=== PATIENT | female | born 1940 | race Caucasian/White ===

== ENCOUNTER 2018-03-08 08:27 | Day surgery (SDC) | payer MEDICARE ==
[~2018-03-08 08:27] MED LIST: Acetaminophen TAB* 325 MG PO PRN; Buffered Lidocaine 0.9% SYRIN* 5 ML/SYR SYRINGE INTRADERM ONE
[2018-03-08] MEDS ORDERED: Midazolam* 1 MG/ML 2 ML VIAL (2 MG) ONE (09:14)
[2018-03-08 10:16] VITALS: BP 158/82
--- NOTE | 2018-03-08 12:53 | OP ---
DATE OF OPERATION: 03/08/2018 - [facility] DATE OF : 1940. SURGEON: Elan George MD ANESTHESIA: Monitored anesthesia care. PREOPERATIVE DIAGNOSIS: Cataract, right eye. POSTOPERATIVE DIAGNOSIS: Cataract, right eye. OPERATIVE PROCEDURE: Extracapsular cataract extraction of the right eye with intraocular lens implant. IMPLANT: SN60WF 21.5 Diopter lens to the right eye. COMPLICATIONS: None. DESCRIPTION OF PROCEDURE: The patient was given phenylephrine 2.5 % and cyclopentolate 1% eye drops to the operative eye in the preoperative area. The patient was taken to the operating room where a time-out was taken to identify the correct patient, site, and side of surgery. The patient's right eye was prepped and draped in the usual sterile fashion with 5% Betadine. A second time- out was taken to verify the correct patient, side, and site of surgery, as well as the correct lens implant. A lid speculum was placed to the right eye. A 1mm paracentesis blade was used to make a clear corneal incision. Preservative-free 1% lidocaine was injected into the anterior chamber. DisCoVisc was then injected into the anterior chamber. A 2.75 mm keratome blade was used to make a triplanar incision. A cystotome initiated a capsulorrhexis, which was completed with Utrata forceps in a continuous and curvilinear manner. Hydrodissection of the lens was performed with BSS on a cannula. The lens could be spun in a capsular bag. The phacoemulsification handpiece was used with a divide-and- conquer technique to remove the nucleus. The I/A handpiece then removed the residual cortical lens material. DisCoVisc was injected to inflate the capsular bag. The planned SN60WF 21.5 Diopter lens was injected into the capsular bag. The residual DisCoVisc was removed from the eye with the I/A handpiece. The corneal incisions were hydrated and no leaks occurred at physiologic pressure around 20 mmHg per palpation. The lid speculum was removed and drapes were removed. Maxitrol ointment was placed to the surface of the operative eye. An adhesive patch and shield was then placed on the operative eye. The patient was taken to the post-operative area in stable condition. [id number]/[facility] #: [id number] [facility]
[2018-03-08] MEDS ORDERED: Neomycin/Polymy/Dex OPHTH.OIN* 3.5 GM ONE (13:58)
[2018-03-08] MEDS ORDERED: acetaZOLAMIDE TAB* 250 MG ONE (13:58)
[2018-03-08] MEDS ORDERED: Tetracaine 0.5% OPTH.SOL 4 ML* 1 DROP BTL ONE (13:58)
[2018-03-08] MEDS ORDERED: Lidocaine 1%* 5 ML VIAL ONE (13:58)
[2018-03-08] MEDS ORDERED: Ketorolac 0.5% OPHTH (NF) 0.5 % 5 ML BTL ONE (13:58)
[2018-03-08] MEDS ORDERED: Cyclopentolate 1% OPTH.SOL* 2 ML BTL ONE (13:58)
[2018-03-08] MEDS ORDERED: Tropicamide 1% OPTH.SOL* BTL ONE (13:58)
[2018-03-08] MEDS ORDERED: Phenylephrine 2.5% OPTH.SOL* 2 ML BTL ONE (13:58)
[2018-03-08] MEDS ORDERED: Povidone Iodine 5% OPTH* 30 ML BTL ONE (13:58)
== END 2018-03-08 10:11 | disposition home or self-care (01) ==
LOC: OREAST 08:27
PROVIDERS: ATTEND Student in an Organized Health Care Education/Training Program
DX: H25.811 Combined forms of age-related cataract, right eye (principal); H35.3132 Nonexudative age-related macular degeneration, bilateral, intermediate dry stage; H40.023 Open angle with borderline findings, high risk, bilateral; I10 Essential (primary) hypertension; M06.9 Rheumatoid arthritis, unspecified
CPT/HCPCS: A9270-GY; J2250; V2632

== ENCOUNTER 2018-03-15 07:38 | Day surgery (SDC) | payer MEDICARE ==
[2018-03-15] MEDS ORDERED: fentaNYL* 50 MCG/ML 2 ML VIAL (100 MCG VIAL) ONE (08:30)
[2018-03-15] MEDS ORDERED: Midazolam* 1 MG/ML 2 ML VIAL (2 MG) ONE (08:30)
[2018-03-15 09:26] VITALS: BP 137/71
[2018-03-15] MEDS ORDERED: Tetracaine 0.5% OPTH.SOL 4 ML* 1 DROP BTL ONE (10:59)
[2018-03-15] MEDS ORDERED: Tropicamide 1% OPTH.SOL* BTL ONE (10:59)
[2018-03-15] MEDS ORDERED: Cyclopentolate 1% OPTH.SOL* 2 ML BTL ONE (10:59)
[2018-03-15] MEDS ORDERED: Lidocaine 1%* 5 ML VIAL ONE (10:59)
[2018-03-15] MEDS ORDERED: Povidone Iodine 5% OPTH* 30 ML BTL ONE (10:59)
[2018-03-15] MEDS ORDERED: Ketorolac 0.5% OPHTH (NF) 0.5 % 5 ML BTL ONE (10:59)
[2018-03-15] MEDS ORDERED: acetaZOLAMIDE TAB* 250 MG ONE (10:59)
[2018-03-15] MEDS ORDERED: Neomycin/Polymy/Dex OPHTH.OIN* 3.5 GM ONE (10:59)
[2018-03-15] MEDS ORDERED: Phenylephrine 2.5% OPTH.SOL* 2 ML BTL ONE (10:59)
--- NOTE | 2018-03-15 16:14 | OP ---
DATE OF OPERATION: 03/15/18 - [facility] DATE OF : [birth year] SURGEON: Elan George MD ANESTHESIA: Monitored anesthesia care. PREOPERATIVE DIAGNOSIS: Cataract, left eye. POSTOPERATIVE DIAGNOSIS: Cataract, left eye. OPERATIVE PROCEDURE: Extracapsular cataract extraction of the left eye with intraocular lens implant. IMPLANT: SN60WF 21.5 diopter lens to the left eye. COMPLICATIONS: None. DESCRIPTION OF PROCEDURE: The patient was given phenylephrine 2.5 % and cyclopentolate 1% eye drops to the operative eye in the preoperative area. The patient was taken to the operating room where a time-out was taken to identify the correct patient, site, and side of surgery. The patient's left eye was prepped and draped in the usual sterile fashion with 5% Betadine. A second time- out was taken to verify the correct patient, side, and site of surgery, as well as the correct lens implant. A lid speculum was placed to the left eye. A 1mm paracentesis blade was used to make a clear corneal incision. Preservative-free 1% lidocaine was injected into the anterior chamber. DisCoVisc was then injected into the anterior chamber. A 2.75 mm keratome blade was used to make a triplanar incision. A cystotome initiated a capsulorrhexis, which was completed with Utrata forceps in a continuous and curvilinear manner. Hydrodissection of the lens was performed with BSS on a cannula. The lens could be spun in a capsular bag. The phacoemulsification handpiece was used with a divide-and- conquer technique to remove the nucleus. The I/A handpiece then removed the residual cortical lens material. DisCoVisc was injected to inflate the capsular bag. The planned SN60WF 21.5 Diopter lens was injected into the capsular bag. The residual DisCoVisc was removed from the eye with the I/A handpiece. The corneal incisions were hydrated and no leaks occurred at physiologic pressure around 20 mmHg per palpation. The lid speculum was removed and drapes were removed. Maxitrol ointment was placed to the surface of the operative eye. An adhesive patch and shield was then placed on the operative eye. The patient was taken to the postoperative area in stable condition. [id number]/[facility] #: [id number] [facility]
== END 2018-03-15 09:31 | disposition home or self-care (01) ==
LOC: OREAST 07:38
PROVIDERS: ATTEND Student in an Organized Health Care Education/Training Program
DX: H25.812 Combined forms of age-related cataract, left eye (principal); H35.3132 Nonexudative age-related macular degeneration, bilateral, intermediate dry stage; H40.023 Open angle with borderline findings, high risk, bilateral; I10 Essential (primary) hypertension; E78.5 Hyperlipidemia, unspecified; M06.9 Rheumatoid arthritis, unspecified
CPT/HCPCS: A9270-GY; J2250; J3010; V2632

== ENCOUNTER 2019-02-23 18:46 | Inpatient (IN) | payer MEDICARE ==
[2019-02-23] MEDS ORDERED: NS 0.9% 1000 ML** 1,000 ML IV ONE (18:55)
[2019-02-23] MEDS ORDERED: Iodixanol* (CONTRAST) 320 MG/ML 100 ML SDV IV ONE (19:06)
--- NOTE | 2019-02-23 19:06 | ED ---
Neurological HPI - HPI Summary HPI Summary: Pt is a 78 y/o F presenting to the ED with a chief complaint of L-sided numbness /tingling. HAMMAD CANAS CALLED at 185. Last known well: 1344. Per the daughter and patient, she felt well this morning, took a nap in the afternoon, woke up, went for a short walk, then suddenly began experiencing L-sided tingling and numbness. Per triage, she also has some L arm drift, gait disturbance, nausea, vomiting, and diarrhea. Patient is a history of hypertension and took her blood pressure medications this morning. Pt to CT at 1854. at 1903, concern for IPH on head CT, proceed with CTA. - History of Current Complaint Chief Complaint: EDNeurologicalDeficit Stated Complaint: LT SIDED NUMBNESS /WEAKNESS PER DAUGHTER Time Seen by Provider: 02/23/19 18:52 Last Known Well Date: 02/23/19 13:45 Hx Obtained From: Patient Onset/Duration: Sudden Onset, Started hours ago, Still Present Timing: Sudden Onset Onset Severity: Moderate Current Severity: Moderate Pain Intensity: 0 Pain Scale Used: 0-10 Numeric Character: Weak, Numbness/Tingling Aggravating: Unknown Alleviating: Unknown Associated Signs and Symptoms: Positive: Unsteady Gait, Weakness, Numbness, Nausea/Vomiting, Diarrhea - Allergy/Home Medications Allergies/Adverse Reactions: Allergies Allergy/AdvReac Type Severity Reaction Status Date / Time No Known Allergies Allergy Verified 03/15/18 07:51 Home Medications: Home Medications Hydrochlorothiazide TAB* [Hydrodiuril TAB*] 12.5 mg PO DAILY 02/23/19 [History Confirmed 02/23/19] PMH/Surg Hx/FS Hx/Imm Hx Previously Healthy: Yes Cardiovascular History: Reports: Hx Hypercholesterolemia, Hx Hypertension - ON MEDICATION, Other Cardiovascular Problems/Disorders - elevated cholesterol-on med Respiratory History: Denies: Other Respiratory Problems/Disorders GI History: Denies: Other GI Disorders History: Denies: Other Problems/Disorders Musculoskeletal History: Reports: Hx Arthritis - rheumatoid arthritis, Hx Scoliosis, Other Musculoskeletal History - Scoliosis, Right lower arm fx repair 1979 Denies: Hx Osteoporosis Sensory History: Reports: Hx Cataracts - Bilateral, Hx Contacts or Glasses - Glasses Denies: Hx Hearing Aid Opthamlomology History: Reports: Hx Cataracts - Bilateral, Hx Contacts or Glasses - Glasses Neurological History: Denies: Hx Headaches, Other Neuro Impairments/Disorders - Cancer History Hx Chemotherapy: No Hx Radiation Therapy: No - Surgical History Surgery Procedure, Year, and Place: Colonoscopies. Fractured right lower arm repair . Partial Hysterectomy age 28 Hx Anesthesia Reactions: No Infectious Disease History: No Infectious Disease History: Denies: Traveled Outside the [place] in Last 30 Days - Family History Known Family History: Negative: Diabetes - Social History Alcohol Use: Occasionally Alcohol Amount: wine occasionally Hx Substance Use: No Substance Use Type: Reports: None Hx Tobacco Use: No Smoking Status (MU): Never Smoked Tobacco Review of Systems Positive: Vomiting, Diarrhea, Nausea Positive: Other - gait disturbance, L arm drift Positive: Weakness, Paresthesia, Numbness All Other Systems Reviewed And Are Negative: Yes Physical Exam - Summary Physical Exam Summary: Constitutional: Well-developed, Well-nourished, Alert. (-) Distressed Skin: Warm, Dry HENT: Normocephalic; Atraumatic Eyes: Conjunctiva normal Neck: Musculoskeletal ROM normal neck. (-) JVD, (-) Nuchal rigidity Cardio: Rhythm regular, rate normal, Heart sounds normal; Intact distal pulses; Radial pulses are 2+ and symmetric. (-) Murmur Pulmonary/Chest wall: Effort normal. (-) Respiratory distress, (-) Wheezes, (-) Rales Abd: Soft. (-) Tenderness, (-) Distension, (-) Guarding, (-) Rebound Musculoskeletal: (-) Edema Lymph: (-) Cervical adenopathy Neuro: Alert, PERRL, Oriented x3, Cranial nerves II-XII are grossly intact. L upper extremity drift, decreased sensation in left arm and left leg (-) Dysmetria, (-) Nystagmus, gait deferred Psych: Mood and affect Normal Triage Information Reviewed: Yes Vital Signs On Initial Exam: Initial Vitals Temp Pulse Resp BP Pulse Ox 99.1 F 96 18 177/109 96 02/23/19 18:47 02/23/19 18:47 02/23/19 18:47 02/23/19 18:47 02/23/19 18:47 Vital Signs Reviewed: Yes Procedures - Sedation Patient Received Moderate/Deep Sedation with Procedure: No Diagnostics - Vital Signs Vital Signs Temp Pulse Resp BP Pulse Ox 11/06/19 18:47 99.1 F 96 18 177/109 96 - Laboratory Result Diagrams: 02/23/19 19:18 02/23/19 19:18 Lab Statement: Any lab studies that have been ordered have been reviewed, and results considered in the medical decision making process. - Radiology CXR Radiology Interpretation Completed By: Radiologist Summary of Radiographic Findings: No acute process. Pending official radiology report. - CT CTA Head/Neck CT Interpretation Completed By: Radiologist Summary of CT Findings: Head CTA. Suspected 2 mm aneurysm at the inferior wall of the left supraclinoid ICA. Neck CTA. No acute vascular abnormality identified in the neck. ED physician has reviewed this report. Brain CT CT Interpretation Completed By: Radiologist Summary of CT Findings: 1. Right ganglial capsular hemorrhage measuring 13 mm, with no mass effect or midline shift. 2. Age-related involutional changes, with findings of chronic microvascular ischemic disease. ED physician has reviewed this report. - EKG 2026 Cardiac Rate: Tachycardia - 97bpm EKG Rhythm: Sinus Tachycardia ST Segment: Normal Ectopy: None Summary of EKG Findings: An EKG at 2026 reveals NSR at 97bpm with PACs, nml axis , nml intervals. No STEMI. No acute changes. ED physician has reviewed and interpreted this EKG. NIH Scale - NIH Scale Level of Consciousness: Alert/Keenly Responsive Ask Patient the Month and His/Her Age: Both Correct Ask Pt to Open/Close Eyes and Hire Car Driver/Release Non-Paretic Hand: Both Correctly Best Gaze (Only Horizontal Eye Movement): Normal Visual Field Testing: No Visual Loss Facial Paresis-Pt to Smile & Close Eyes or Grimace Symmetry: Normal/Symmetrical Motor Function - Right Arm: No Drift-Holds 10 Seconds Motor Function - Left Arm: Drifts LT 10 seconds Motor Function - Right Leg: No Drift-Holds 10 Seconds Motor Function - Left Leg: No Drift-Holds 10 Seconds Limb Ataxia-Must be out of Proportion to Weakness Present: Absent Sensory (Use Pinprick to Test Arms/Legs/Trunk/Face): Pinprick Less on Affected Best Language (Describe Picture, Name Items): No Aphasia Dysarthria (Read Several Words): Normal Extinction and Inattention: No Abnormality Total Score: 2 Re-Evaluation - Re-Evaluation 1st re-eval Re-Evaluation Time: 19:35 Change: Unchanged Comment: Informed pt and family of results/plan. Course/Dx - Course Course Of Treatment: 78-year-old female with a history of hypertension presents with 6 hours of left-sided numbness and weakness. - NIH stroke scale of 2 for left arm drift and decreased sensation. CT noncontrast shows a right basal ganglia IPH, CTA shows a left ICA aneurysm. We'll discuss with on-call neurosurgery as well as neurology. Patient blood pressure elevated in the 170s , placed on nicardipine blood pressure goal 150 - Diagnoses Provider Diagnoses: Hypertensive emergency, Intracranial hemorrhage - Critical Care Time Critical Care Time: 30-74 min - Upon my evaluation, this patient had a high probability of imminent or life-threatening deterioration due to cranial hemorrhage, hypertensive urgency, which required my direct attention, intervention, and personal management. I have personally provided 45 minutes of critical care time exclusive of time spent on separately billable procedures. Time includes review of laboratory data, radiology results, discussion with consultants, and monitoring for potential decompensation. Interventions were performed as documented above. Discharge ED - Sign-Out/Discharge Documenting (check all that apply): Patient Departure - Discharge Plan Condition: Stable Disposition: ADMITTED TO [facility] Referrals: Alex Phillips MD [Primary Care Provider] - - Billing Disposition and Condition Condition: STABLE Disposition: Admitted to [facility] - Attestation Statements Document Initiated by Dwain: Yes Documenting Scribe: Hattie Forbes Provider For Whom Dwain is Documenting (Include Credential): Hiram Falcon MD. Scribe Attestation: I, Hattie Forbes, scribed for Hiram Falcon MD. on 02/23/19 at 2102. Scribe Documentation Reviewed: Yes Provider Attestation: The documentation as recorded by the scribe, Hattie Forbes accurately reflects the service I personally performed and the decisions made by me, Hiram Falcon MD. Status of Scribe Document: Viewed Consult Consult: 1914 - Dr. Anguiano will be looking at the images and calling back. 1920 - I spoke with Dr. Anguiano who said they are happy to take the pt if we are uncomfortable taking the patient here. 1927 - I spoke with Dr. Wood about the pt's present condition who is concerned about the aneurysm and would like to obtain an opinion from [facility]. 2012 - I spoke with Dr. Villaseñor of [facility] who states the pt's aneurysm is more than likely unrelated to the acute process, and recommends an outpatient angiogram. 2016 - I spoke with Dr. Wood about the pt's condition who is fine accepting the pt to [facility] but would like me to speak with Dr. Mims. 2019 - I spoke with Dr. Mims about the pt who is agreeable with the plan. 2020 - I spoke with Dr. Biggs who accepts pt with dx of hypertensive emergency and intracranial hemorrhage.
[2019-02-23 19:29] LABS: ABS Lymphocytes 1.1 10^3/ul (1.0-4.8); ABS Monocytes 0.3 10^3/ul (0-0.8); ABS Neutrophils 5.3 10^3/ul (1.5-7.7); Eosinophil % 0.2 %; Hematocrit 36 % (35-47); Lymphocyte % 16.4 %; Mean Corpuscular HGB Conc 33 g/dL (31-36); Mean Corpuscular Hemoglobin 27 pg (27-31); Mean Corpuscular Volume 82 fL (80-97); Mean Platelet Volume 6.9 fL (7.4-10.4); Platelet Count 333 10^3/uL (150-450); Red Cell Distribution Width 16 % (10-15); White Blood Count 6.7 10^3/uL (3.5-10.8)
[2019-02-23 19:38] LABS: Activated Partial Thrombo Time 31.6 seconds (26.0-38.0); INR 1.2 (0.82-1.09)
[2019-02-23 19:47] LABS: Albumin 4.1 g/dL (3.2-5.2); Albumin/Globulin Ratio 1.3 (1-3); BUN/Creatinine Ratio 16.4 (8-20); Calcium 9.6 mg/dL (8.6-10.3); EGFR African American 114.2 (>60); EGFR Non-African American 94.4 (>60); Globulin 3.1 g/dL (2-4); HDL Cholesterol 67.8 mg/dL; Potassium 3.2 mmol/L (3.5-5.0); Total Bilirubin 0.6 mg/dL (0.2-1.0); Total Protein 7.2 g/dL (6.4-8.9)
[2019-02-23 19:49] LABS: Troponin I 0.01 ng/mL (<0.04)
[2019-02-23] MEDS ORDERED: niCARdipine 0.1MG/ML IVPREMIX* 20 MG/200 ML BAG IV SCH ×2 (20:00→23:30)
[2019-02-23] MEDS ORDERED: Potassium Chlor TAB* 20 MEQ TAB.ER PO ONE (20:05)
[2019-02-23 21:21] LABS: Urine Appearance Clear; Urine Bacteria Absent (Absent); Urine Bilirubin Negative (Negative); Urine Blood Negative (Negative); Urine Color Yellow; Urine Glucose Negative (Negative); Urine Ketones 1+ (Negative); Urine Nitrite Negative (Negative); Urine Protein Negative (Negative); Urine Red Blood Cell 1+(3-5/hpf) (Absent); Urine Specific Gravity 1.024 (1.010-1.030); Urine Squamous Epithelial Cell Present (Absent); Urine Urobilinogen Negative (Negative); Urine White Blood Cell Trace(0-5/hpf) (Absent)
[2019-02-23] MEDS: levETIRAcetam IV* 1,500 MG in NS 0.9% 100 ML* 100 ML IVPB SCH (21:26)
[2019-02-23] MEDS ORDERED: Ondansetron INJ* 2 MG/ML VIAL IV PRN (23:06)
--- NOTE | 2019-02-24 01:07 | HP ---
CC: Dr. Alex Phillips; Dr. Campbell; Dr. Mims * ADMISSION HISTORY AND PHYSICAL: DATE OF ADMISSION: 02/23/19 PRIMARY CARE PHYSICIAN: Dr. Alex Phillips. CHIEF COMPLAINT: Left-sided numbness and tingling. HISTORY OF PRESENT ILLNESS: This is an 78-year-old female with past medical history of hypertension, dyslipidemia, who was in her usual state of health up until this afternoon when after walking she was just resting and wanted to hand picker a book. She noticed that she was unable to hand picker her book using her left hand. Then later when she was trying to stand up, her left leg was feeling very weak. She also had some nausea, but denied any vomiting, and she has had 2 loose bowel movements today. Upon arrival to the ER, her symptoms improved with the exception of having a mild headache, which was 2 to 3/10 in intensity all over her head, nonradiating. No other vision problem. During my evaluation , her weakness had completely resolved and there was no numbness. No vision disturbance. No double vision. No chest pain or shortness of breath. No abdominal pain. No urinary burning sensation, pain with urination, increased or decreased urination and code lundberg was called in the ER and she immediately had a CAT scan, which was showing right basal ganglia intraparenchymal hemorrhage. Later on, a CTA was also done, which showed a left ICA aneurysm. Initially, the plan was to try to send the patient to [facility] and the ER physician spoke a few times and the did not think the patient needed any aneurysmal repair at this point. Case was discussed with both Dr. Campbell and Dr. Mims who felt the patient would be stable enough to be admitted here and treated for hypertensive urgency with goal systolic blood pressure to be around 150 to 160. The patient was already started on nicardipine drip and the hospitalist service was called to admit the patient to the ICU. PAST MEDICAL HISTORY: As mentioned: 1. Hypertension. 2. Dyslipidemia. 3. She has also had multiple eye-related problems including macular degeneration and cataract. 4. She also has chronic low back pain. PAST SURGICAL HISTORY: 1. She has had cataract surgery bilaterally. 2. A broken right arm. 3. Total abdominal hysterectomy. 4. Bilateral salpingo-oophorectomy. 5. Appendectomy. FAMILY HISTORY: Noncontributory at her age of 78. SOCIAL HISTORY: She lives by herself in a shelter facility. She is otherwise independent. Able to ambulate without any assistive devices. Able to drive and take care of herself. She denies any smoking, alcohol, or drug use , and she states that she trusts all her kids as her surrogate decision makers, but Chantal is the closest daughter to reach in case she gets confused. She otherwise wishes to be full code. REVIEW OF SYSTEMS: A 14-point review of systems did not reveal any new information other than what is mentioned in the HPI. PHYSICAL EXAMINATION GENERAL: The patient is awake, alert, and oriented x3, did not appear to be in any acute respiratory distress. VITAL SIGNS: In the ER, BP was noted to be 137/68, heart rate 80, respiration rate 18, saturating 98% on room air, temperature was recorded at 99.1. HEAD AND NECK: Atraumatic, normocephalic. Bilateral pupils are reactive. Oral mucosa was dry. Neck supple. No jugular venous distention. LUNGS: Clear to auscultation bilaterally. No wheezing, rhonchi, or rales. HEART: S1, S2. Regular rate and rhythm. ABDOMEN: Soft, nontender, nondistended. EXTREMITIES: No cyanosis, clubbing, or edema. NEURO: As mentioned, awake, alert, oriented to time, place, and person, knew everybody in the room. Strength: The patient was able to lift both upper extremities and maintain for a significant amount of time suggesting 5/5 strength. Lower extremity strength was also noted to be 5/5. Sensation grossly intact. DIAGNOSTIC STUDIES/LAB DATA: CBC was unremarkable. Coagulation profile shows minimally elevated INR at 1.2. Comprehensive metabolic panel shows hyponatremia with sodium of 130, potassium 3.2, random glucose is noted to be 135. LFTs within normal limits. A set of troponin was negative. LDL was noted to be at goal at 93. Lactic acid 1.3. Brain CT was read as right gangliocapsular hemorrhage measuring 13 mm and age- related involutional changes with findings of chronic microvascular ischemic disease. ASPECT score is 8. CTA of the head showed suspected 2-mm aneurysm of the inferior wall of the left supraclinoid ICA. CT of the neck showed no vascular abnormality identified in the neck. Portable chest x-ray was unremarkable. EKG showed sinus tachycardia at 97 beats per minute with a few premature atrial contractions, no other ST elevation. 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 ASSESSMENT AND PLAN: 1. Stroke secondary to right basal ganglia intraparenchymal hemorrhage. Symptoms resolving. The patient was started on Cardene drip and was noted to be systolic below 140. We will try to maintain the patient's blood pressure between 150 to 160 in the first 24 hours with Cardene and IV fluids as necessary. Both Neurology and Neurosurgery were consulted by the ER. We will reevaluate the patient in the morning. We will continue with neuro checks for stroke and further treatment plan would be based on the neurology recommendation. In the meantime, we will continue the patient on the Keppra started in the ER for any seizure precautions. 2. Carotid aneurysm. Currently stable. Could follow up with [facility] for an outpatient angiogram. 3. Hypokalemia. Potassium already replaced. We will repeat labs in the morning. 4. Hyponatremia. Likely dehydration as the patient suggested she was not drinking much fluids. We will continue with IV hydration. 5. History of dyslipidemia. LDL at goal. Continue with Lipitor. 6. Swallow evaluation. We will get a swallow eval for morning given her acute symptoms. In the meantime, we will start the patient on a clear liquid diet as the patient did pass swallow screen by the nursing staff in the ER. 7. DVT prophylaxis with sequential compression device. No Lovenox or heparin given her bleed. 8. Code status: The patient would like to be full code. [id number]/[facility] #: [id number] [facility]
[2019-02-24 01:27] LABS: Urine Appearance Clear; Urine Bilirubin Negative (Negative); Urine Blood Negative (Negative); Urine Color Straw; Urine Glucose Negative (Negative); Urine Ketones Trace (Negative); Urine Nitrite Negative (Negative); Urine Protein Negative (Negative); Urine Specific Gravity 1.011 (1.010-1.030); Urine Urobilinogen Negative (Negative)
[2019-02-24] MEDS ORDERED: NS 0.9% 1000 ML** 1,000 ML IV ONE ×2 (01:36→03:10)
[2019-02-24] MEDS: NS 0.9% 1000 ML** 1,000 ML IV SCH ×3 (02:56→17:11)
[2019-02-24 03:52] LABS: ABS Eosinophils 0.1 10^3/ul (0-0.6); ABS Lymphocytes 1.2 10^3/ul (1.0-4.8); ABS Monocytes 0.5 10^3/ul (0-0.8); ABS Neutrophils 3.7 10^3/ul (1.5-7.7); Hematocrit 33 % (35-47); Hemoglobin 10.6 g/dL (12.0-16.0); Lymphocyte % 21.7 %; Mean Corpuscular HGB Conc 32 g/dL (31-36); Mean Corpuscular Hemoglobin 27 pg (27-31); Mean Corpuscular Volume 84 fL (80-97); Mean Platelet Volume 6.8 fL (7.4-10.4); Nucleated Red Blood Cells % 0.1; Platelet Count 253 10^3/uL (150-450); Red Blood Count 3.96 10^6 /uL (3.70-4.87); Red Cell Distribution Width 16 % (10-15); White Blood Count 5.5 10^3/uL (3.5-10.8)
--- NOTE | 2019-02-24 04:05 | CONS ---
CONSULTATION NOTE: DATE OF CONSULT: 02/23/19 HISTORY OF PRESENT ILLNESS: The patient is a very pleasant 78-year-old right- handed female with history of hypertension, who presented to the emergency room after acute onset of left-sided weakness. Requested to see the patient by the physician because of CT scan findings consistent with the right basal ganglia intracranial hemorrhage. The patient reports that she started experiencing left - sided tingling and numbness with weakness with nausea without vomiting and with diarrhea. The patient reports that she does have weakness on the left upper and left lower extremity. She reports that she has been having difficulty with ambulation. She was able to ambulate with assistance through the ED. She denies any urinary or GI incontinence. She reports that she has diarrhea. 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 The patient was examined in the emergency room, and her daughter and her granddaughter are at the bedside. PAST MEDICAL HISTORY: The patient has a history of hypertension and hypercholesterolemia. PAST SURGICAL HISTORY: Cataract surgery, right lower extremity fracture repair in , partial hysterectomy. MEDICATIONS: The patient was on hydrochlorothiazide. ALLERGIES: No known drug allergies. FAMILY HISTORY: Noncontributory. SOCIAL HISTORY: Tobacco, negative. Alcohol, occasionally. Recreational drug use, negative. PHYSICAL EXAM: The patient is not in acute distress. She is awake, alert, and oriented x3. Her pupils are equal and reactive. Cranial nerves II through XII are grossly intact. Motor 4-5/5 in the right upper and lower extremity, 4/5 in the left upper and lower extremity. The patient does have pronator drift on the left. Sensory grossly intact to light touch. Deep tendon reflexes +1 bilaterally. No clonus. Babinski positive on the left, negative on the right. Dianna's negative. The patient has no tenderness to palpation of the thoracic or lumbar spine. She has free range of motion of the cervical spine. DIAGNOSTIC STUDIES/LAB DATA: The patient had a CT scan of the brain revealing a right small intracranial hemorrhage at internal capsule/basal ganglia area with no significant mass effect. The patient had a CTA of her neck and brain that revealed the suspicion of left subarachnoid ICA aneurysm. ASSESSMENT: The patient is a very pleasant 78-year-old right-handed female with a history of hypertension, who presented with left hemiparesis and CT scan findings consistent with a right basal ganglia internal capsule, intracranial hemorrhage. PLAN/RECOMMENDATIONS: The patient at this point is doing quite well. Because of the presence of the aneurysm, ED contacted Dr. Villaseñor, who was on-call for endovascular service in [facility] for evaluation and possible transfer. Dr. Villaseñor recommended an angiogram as an outpatient, as he felt that the possible aneurysm is not associated with the patient's intracranial hemorrhage. The patient will be kindly admitted by Internal Medicine with a neurology consultation into the ICU. We will recommend controlling of blood pressure with systolic blood pressure less than 140. Recommend seizure prophylaxis for 7 days and also recommend repeat CT scan of the brain in the morning. The patient will require followup with Dr. Pantoja for her aneurysm and consideration for cerebral angiogram, while also will require a followup MRI with and without contrast in 3 months in order to exclude any other etiologies. Plan was discussed in detail with the patient and her family. Ample time was allowed to answer all of their questions. Thank you for allowing us to participate in the care of this patient. Please do not hesitate to contact our office in case if you have any further questions or concerns regarding the care of this patient. [id number]/[facility] #: [id number] AN[place]
[2019-02-24 04:07] LABS: BUN/Creatinine Ratio 10.6 (8-20); Calcium 8.4 mg/dL (8.6-10.3); EGFR African American 154.3 (>60); EGFR Non-African American 127.5 (>60); Potassium 3.5 mmol/L (3.5-5.0)
[2019-02-24] MEDS: NS 0.9% 1000 ML** 3,000 ML IV ONE ×2 (06:18→07:17)
[2019-02-24] MEDS: levETIRAcetam IV* 1,500 MG in NS 0.9% 100 ML* 100 ML IVPB SCH ×2 (09:16→19:50)
[2019-02-24] MEDS: Acetaminophen TAB* 325 MG PO PRN (14:20)
--- NOTE | 2019-02-24 16:46 | PN ---
Date of Service: 02/24/19 - HD 2 Critical Care Services: 78 yo F with PMH of HLD, HTN presented to the ED on 02/23 after she developed sudden onset left sided tingling and numbness. In ED triage she was noted to ahve L arm drift, gait distubance, nausea, vomitting and diarrhea. Code lundberg activated. On evaluation initial BP 177/109 an HR 96. Physical exam notable for GCS 15. Cranial nerves intact. LUE with drift. Decreased sensation in left arm and leg. Na 130, K 3.2. CT brain showed right ganglial capsular hemorrhage measuring 13mm without midline shift or mass effect. CTA with question of 2mm aneurysm at inferior wall of left supraclinoid ICA. Neurosurgery and Neurology consulted. Admitted to ICU overnight. 02/24: Pt noted to have improving strength in left arm. Passed swallow evaluation Vital Signs: Temp Pulse Resp BP SpO2 FiO2 100.1 F 71 22 137/77 96 02/24/19 16:00 02/24/19 16:00 02/24/19 16:00 02/24/19 16:00 02/24/19 16:00 Physical Exam: Gen: resting comfortably HEENT: symmetric Lungs: nonlabored Cardiac: RRR Abdomen: nondistended Extremities: left roller billet mill slightly weaker than right Neuro: alert, oriented Fluid Balance (Past 24 Hours): I= O= Net Intake & Output 02/22/19 02/23/19 02/24/19 02/25/19 06:59 06:59 06:59 06:59 Intake Total 3497 1678 Output Total 3700 3995 Balance -203 -2317 Weight 132 lb 4.828 oz Intake: IV Fluids 3497 819 NS (0.9%) 2897 819 Medicated IV 19 Nicardipine 19 Oral 840 Output: Hicks 3700 3995 Labs: Laboratory Results - last 24 hr 02/23/19 02/23/19 02/23/19 18:55 19:18 19:18 WBC 6.7 RBC 4.40 Hgb 12.0 Hct 36 MCV 82 MCH 27 MCHC 33 RDW 16 H Plt Count 333 MPV 6.9 L Neut % (Auto) 79.1 Lymph % (Auto) 16.4 Cloud % (Auto) 3.8 Eos % (Auto) 0.2 Baso % (Auto) 0.5 Absolute Neuts (auto) 5.3 Absolute Lymphs (auto) 1.1 Absolute Monos (auto) 0.3 Absolute Eos (auto) 0.0 Absolute Basos (auto) 0.0 Absolute Nucleated RBC 0.0 Nucleated RBC % 0.0 INR (Anticoag Therapy) 1.20 H APTT 31.6 Sodium Potassium Chloride Carbon Dioxide Anion Gap BUN Creatinine Est GFR ( Amer) Est GFR (Non-Af Amer) BUN/Creatinine Ratio Glucose POC Glucose (mg/dL) 138 H Lactic Acid Calcium Total Bilirubin AST ALT Alkaline Phosphatase Troponin I Total Protein Albumin Globulin Albumin/Globulin Ratio Triglycerides Cholesterol LDL Cholesterol HDL Cholesterol Urine Color Urine Appearance Urine pH Ur Specific Roscoe Urine Protein Urine Ketones Urine Blood Urine Nitrate Urine Bilirubin Urine Urobilinogen Ur Leukocyte Esterase Urine WBC (Auto) Urine RBC (Auto) Ur Squamous Epith Cells Urine Bacteria Urine Glucose 02/23/19 02/23/19 02/23/19 19:18 19:18 20:46 WBC RBC Hgb Hct MCV MCH MCHC RDW Plt Count MPV Neut % (Auto) Lymph % (Auto) Cloud % (Auto) Eos % (Auto) Baso % (Auto) Absolute Neuts (auto) Absolute Lymphs (auto) Absolute Monos (auto) Absolute Eos (auto) Absolute Basos (auto) Absolute Nucleated RBC Nucleated RBC % INR (Anticoag Therapy) APTT Sodium 130 L Potassium 3.2 L Chloride 95 L Carbon Dioxide 27 Anion Gap 8 BUN 10 Creatinine 0.61 Est GFR ( Amer) 114.2 Est GFR (Non-Af Amer) 94.4 BUN/Creatinine Ratio 16.4 Glucose 135 H POC Glucose (mg/dL) Lactic Acid 1.3 Calcium 9.6 Total Bilirubin 0.60 AST 25 ALT 12 Alkaline Phosphatase 61 Troponin I 0.01 Total Protein 7.2 Albumin 4.1 Globulin 3.1 Albumin/Globulin Ratio 1.3 Triglycerides 62 Cholesterol 173 LDL Cholesterol 93 HDL Cholesterol 67.8 Urine Color Yellow Urine Appearance Clear Urine pH 7.0 Ur Specific Roscoe 1.024 Urine Protein Negative Urine Ketones 1+ A Urine Blood Negative Urine Nitrate Negative Urine Bilirubin Negative Urine Urobilinogen Negative Ur Leukocyte Esterase Trace A Urine WBC (Auto) Trace(0-5/hpf) Urine RBC (Auto) 1+(3-5/hpf) A Ur Squamous Epith Cells Present A Urine Bacteria Absent Urine Glucose Negative 02/24/19 02/24/19 02/24/19 01:00 03:32 03:32 WBC 5.5 RBC 3.96 Hgb 10.6 L Hct 33 L MCV 84 MCH 27 MCHC 32 RDW 16 H Plt Count 253 MPV 6.8 L Neut % (Auto) 67.9 Lymph % (Auto) 21.7 Cloud % (Auto) 8.9 Eos % (Auto) 1.0 Baso % (Auto) 0.5 Absolute Neuts (auto) 3.7 Absolute Lymphs (auto) 1.2 Absolute Monos (auto) 0.5 Absolute Eos (auto) 0.1 Absolute Basos (auto) 0.0 Absolute Nucleated RBC 0.0 Nucleated RBC % 0.1 INR (Anticoag Therapy) APTT Sodium 137 Potassium 3.5 Chloride 108 Carbon Dioxide 23 Anion Gap 6 BUN 5 L Creatinine 0.47 L Est GFR ( Amer) 154.3 Est GFR (Non-Af Amer) 127.5 BUN/Creatinine Ratio 10.6 Glucose 88 POC Glucose (mg/dL) Lactic Acid Calcium 8.4 L Total Bilirubin AST ALT Alkaline Phosphatase Troponin I Total Protein Albumin Globulin Albumin/Globulin Ratio Triglycerides Cholesterol LDL Cholesterol HDL Cholesterol Urine Color Straw Urine Appearance Clear Urine pH 8.0 Ur Specific Roscoe 1.011 Urine Protein Negative Urine Ketones Trace A Urine Blood Negative Urine Nitrate Negative Urine Bilirubin Negative Urine Urobilinogen Negative Ur Leukocyte Esterase Negative Urine WBC (Auto) Urine RBC (Auto) Ur Squamous Epith Cells Urine Bacteria Urine Glucose Negative Studies: 02/23 EKG: sinus tachycardia. CXR: NAD Brain CT: Right galgial capsular hemorrhage measuring 13mm. Head CTA: suspected 2mm aneurysm of inferior wall of left supraclinoid ICA Nutrition: General diet Impression: 78 yo F with PMH including HLD and HTN admitted on with left upper extremity weakness and left sided parasthesias. CT shows right basal ganglia hemorrhage. Plan: Hospital Diagnoses: #1: Acute right basal ganglia hemorrhagic stroke #2: Hypertensive urgency #3: Hyperlipidemia #4: Hypocalcemia Cardiovascular: (1) Hypertensive urgency; (2) Hyperlipidemia -- HR 64-96 -- SBP 120-195, goal SBP 100-160 -- Telemetry -- Troponin negative -- Lipid panel Triglycerides 62 Cholesterol 173 HDL 67.8 LDL 93 -- PRN Hydralazine and Labetalol for goal SBP < 160 Home meds: Atorvastatin, HCTZ Pulmonary: No acute issues -- RR 12-28 -- sats 93-98 on RA Home meds: None Gastrointestinal: No acute issues -- LFTs within normal limits -- diet: regular -- bowel regimen: none -- ulcer prophylaxis: not indicated at this time -- PRN Zofran Home meds: None Endocrine: No acute issues -- monitor BGs Home meds: None Renal: (1) Hypocalcemia -- UOP: 308 ml/hr -- Cr 0.47 from 0.61 -- Lytes Na 137 from 130 K 3.5 Ca 8.4, replace Mag ordered with AM Labs Phos ordered wtih AM Labs -- IVF: HL Home meds: None Infectious disease: No acute issues -- Tmax 100.1 -- WBC 5.5 from 6.7 -- Micro 02/24 MRSA negative UA negative -- ABX None Home meds: None Neurologic: (1) Acute right basal ganglia hemorrhagic stroke -- PRN Tylenol -- Keppra for seizure prophylaxis Home meds: Naproxen Hematological: (1) Anemia -- Hgb 10.6 from 12 -- Plt 253 from 333 -- Coags INR 1.2 PTT 31.6 -- DVT prophylaxis: SCDs Home meds: None Metabolic: No acute issues Home meds: None Other: No acute issues Home meds: Preservision MVI Deep vein thrombosis prophylaxis: SCDs Dietary: Not indicated at this time Condition: stable Prognosis: guarded Code status: full Disposition: continue ICU monitoring Family updated on rounds regarding interval events and plan of care Cumulative time spent in the care of this patient (excluding any procedure time) : at least 30 minutes. Patient care included clinical interview (with patient and/or family), bedside exam of the patient, review of labs, x-rays, and other ancillary data, coordination of (respiratory, nursing care, review of patient's records, discussion regarding patients management with involved consultants, primary physician, pharmacists, and other healthcare personnel (dietary, case management , physical/occupational therapy etc.) Critical Care Time: none
[2019-02-24] MEDS ORDERED: Labetalol IV* 5 MG/ML 20 ML VIAL IV PUSH PRN (17:08)
[2019-02-24] MEDS ORDERED: hydrALAZINE IV* 20 MG/ML VIAL IV SLOW PU PRN (17:08)
[2019-02-24] MEDS: Calcium Carbonate CHEW TAB* 500 MG (TUMS) PO SCH (19:50)
--- NOTE | 2019-02-24 20:31 | PN ---
PROGRESS NOTE: DATE OF SERVICE: 02/24/19 PATIENT OF: Dr. Campbell and Dr. Biggs. HISTORY: This is an 78-year-old woman who presented yesterday afternoon with sudden onset of left-sided arm and leg weakness with some nausea, mild headache 2 to 3/10 global headache and with some numbness in the left side. She presented to the ER where a code lundberg was called and she turned out to have a right basal ganglia intracranial hemorrhage and Dr. Campbell saw her as well as she had a telestroke consult. In addition, the CTA showed a left supraclinoid possible [address] scan also showed some chronic microvascular ischemic changes. She was admitted to the hospital and she notes that she has no numbness at this point and still has some mild weakness in her arm, but not her leg. She has no headache at this point. PAST MEDICAL HISTORY: She has a past history of hypertension and dyslipidemia and she has macular degeneration as well as cataracts. She had some chronic low back pain. PAST SURGICAL HISTORY: She is status post cataract surgery bilaterally, broken right arm, total abdominal hysterectomy, bilateral salpingo-oophorectomy and appendectomy. MEDICATIONS: At home, she was on: 1. Hydrochlorothiazide 12.5 daily. 2. Lipitor 10 mg daily. 3. Aleve 220 b.i.d. as needed FAMILY HISTORY: Noncontributory. Rage lives in a [facility] facility and is independent, fully ambulatory, and she drives. SOCIAL HISTORY: Her daughter is the healthcare proxy. REVIEW OF SYSTEMS: Negative in all 14 spheres PHYSICAL EXAMINATION: On exam pulse 79, respirations 19, blood pressure 122/63 , temperature 97.6. She is alert and oriented with normal speech comprehension. Cranial Nerves: II through XII are intact. Motor exam revealed normal tone and strength, but she did have a left pronator drift and had some mild dysmetria on that left side. There is no drift in the left leg and strength in both legs and right arm were intact. Reflexes were 1 and equal. Toes were equivocal on the left, downgoing on the right. Sensation intact to light touch. Chest: Clear. Cardiovascular: Regular rate and rhythm. Abdomen is soft with positive bowel sounds. DIAGNOSTIC STUDIES/LAB DATA: I reviewed her CT scan, which did show some chronic small vessel ischemic changes as well as a right basal ganglia hemorrhage measured at 13 mm. There is some possible slight hypodensity around it. Her CTA showed an aneurysm as described in the supraclinoid portion of her left carotid. White count was normal, hematocrit of 33, platelets 253. Has normal PTT. INR 1.2. Normal CMP. Her initial sodium was 130, but now is 137, calcium is currently 8.4. UA was negative. CURRENT MEDICATION: Includes Keppra per Dr. Campbell, 1500 b.i.d. Jahaira has a right basal ganglia hemorrhage most likely related to her hypertension with clinical improvement although still with some symptoms of left arm weakness. She is scheduled to get a followup scan, it would be reasonable to make that an MRI scan tonight and clinically I think most likely she will do well from this. She does need followup of her aneurysm and she goes home. She should have followup with Dr. Michael Taylor in the Neurology office at [facility]. Thank you for sharing her case. [id number]/[facility] #: [id number] AN[place]
[2019-02-25] MEDS: Melatonin 3 MG TAB PO SCH ×2 (02:51→21:14)
[2019-02-25] MEDS: Calcium Carbonate CHEW TAB* 500 MG (TUMS) PO SCH ×2 (08:50→21:12)
[2019-02-25] MEDS: levETIRAcetam IV* 1,500 MG in NS 0.9% 100 ML* 100 ML IVPB SCH (08:50)
--- NOTE | 2019-02-25 10:56 | PN ---
Date of Service: 02/25/19 - HD 3 Critical Care Services: 78 yo F with PMH of HLD, HTN presented to the ED on 02/23 after she developed sudden onset left sided tingling and numbness. In ED triage she was noted to ahve L arm drift, gait distubance, nausea, vomitting and diarrhea. Code lundberg activated. On evaluation initial BP 177/109 an HR 96. Physical exam notable for GCS 15. Cranial nerves intact. LUE with drift. Decreased sensation in left arm and leg. Na 130, K 3.2. CT brain showed right ganglial capsular hemorrhage measuring 13mm without midline shift or mass effect. CTA with question of 2mm aneurysm at inferior wall of left supraclinoid ICA. Neurosurgery and Neurology consulted. Admitted to ICU overnight. 02/24: Pt noted to have improving strength in left arm. Passed swallow evaluation. [address] stable. 02/25: No overnight events. Vital Signs: Temp Pulse Resp BP SpO2 FiO2 98.6 F 72 17 157/76 94 02/25/19 07:00 02/25/19 07:00 02/25/19 07:00 02/25/19 07:00 02/25/19 07:00 Physical Exam: Gen: alert, sitting up in bed HEENT: intact Lungs: nonlabored Cardiac: RRR Abdomen: nondistended Extremities: warm, dry Neuro: working with PT Fluid Balance (Past 24 Hours): I= O= Net Intake & Output 02/23/19 02/24/19 02/25/19 02/26/19 06:59 06:59 06:59 06:59 Intake Total 3497 2758 Output Total 3700 6100 450 Balance -203 -3342 -450 Weight 132 lb 4.828 oz 130 lb 2.431 oz Intake: IV Fluids 3497 819 NS (0.9%) 2897 819 Medicated IV 19 Nicardipine 19 Oral 1920 Output: Hicks 3700 6100 450 Labs: Pending Studies: 02/24 CT brain: stable hemorrhage at the right thalamus/internal capsule 02/23 EKG: sinus tachycardia. CXR: NAD Brain CT: Right galgial capsular hemorrhage measuring 13mm. Head CTA: suspected 2mm aneurysm of inferior wall of left supraclinoid ICA Nutrition: general diet Impression: 78 yo F with PMH including HLD and HTN admitted on 11/ with left upper extremity weakness and left sided parasthesias. CT shows right basal ganglia hemorrhage. Plan: Hospital Diagnoses: #1: Acute right basal ganglia hemorrhagic stroke #2: Hypertensive urgency #3: Hyperlipidemia #4: Hypocalcemia Cardiovascular: (1) Hypertensive urgency; (2) Hyperlipidemia -- HR 64-87 -- SBP 110-159, goal SBP 100-160 -- Telemetry` -- Lipid panel Triglycerides 62 Cholesterol 173 HDL 67.8 LDL 93 -- PRN Hydralazine and Labetalol for goal SBP < 160 Home meds: Atorvastatin, HCTZ Pulmonary: No acute issues -- RR 12-28 -- sats 92-98 on RA Home meds: None Gastrointestinal: No acute issues -- LFTs within normal limits -- diet: regular -- bowel regimen: none -- ulcer prophylaxis: not indicated at this time -- PRN Zofran Home meds: None Endocrine: No acute issues -- monitor BGs Home meds: None Renal: (1) Hypocalcemia -- UOP: 254 ml/hr -- Cr pending -- Lytes Na pending K pending Ca pending Mag pending Phos pendings -- IVF: HL -- calcium carbonate Home meds: None Infectious disease: No acute issues -- Tmax 100.5 -- WBC pending -- Micro 02/24 MRSA negative UA negative -- ABX None Home meds: None Neurologic: (1) Acute right basal ganglia hemorrhagic stroke -- PRN Tylenol -- Keppra for seizure prophylaxis -- Melatonin for sleep -- PT and OT -- Neurology and neurosurgery following Home meds: Naproxen Hematological: (1) Anemia -- Hgb pending -- Plt pending -- DVT prophylaxis: SCDs Home meds: None Metabolic: No acute issues Home meds: None Other: No acute issues Home meds: Preservision MVI Deep vein thrombosis prophylaxis: SCDs Dietary: Not indicated at this time Condition: stable Prognosis: guarded Code status: full Disposition: continue ICU monitoring Family updated on rounds regarding interval events and plan of care Cumulative time spent in the care of this patient (excluding any procedure time) : at least 30 minutes. Patient care included clinical interview (with patient and/or family), bedside exam of the patient, review of labs, x-rays, and other ancillary data, coordination of (respiratory, nursing care, review of patient's records, discussion regarding patients management with involved consultants, primary physician, pharmacists, and other healthcare personnel (dietary, case management , physical/occupational therapy etc.) Critical Care Time: none
[2019-02-25 11:01] LABS: Hematocrit 33 % (35-47); Hemoglobin 10.5 g/dL (12.0-16.0); Mean Corpuscular HGB Conc 32 g/dL (31-36); Mean Corpuscular Hemoglobin 27 pg (27-31); Mean Corpuscular Volume 83 fL (80-97); Mean Platelet Volume 6.9 fL (7.4-10.4); Platelet Count 250 10^3/uL (150-450); Red Blood Count 3.91 10^6 /uL (3.70-4.87); Red Cell Distribution Width 15 % (10-15); White Blood Count 5.3 10^3/uL (3.5-10.8)
[2019-02-25 11:19] LABS: BUN/Creatinine Ratio 10.5 (8-20); Calcium 8.9 mg/dL (8.6-10.3); EGFR African American 123.5 (>60); EGFR Non-African American 102.1 (>60); Magnesium 1.7 mg/dL (1.9-2.7); Potassium 3.1 mmol/L (3.5-5.0)
[2019-02-25] MEDS ORDERED: Magnesium Oxide TAB* 400 MG PO ONE (13:46)
[2019-02-25] MEDS: Potassium Chlor TAB* 20 MEQ TAB.ER PO SCH ×2 (15:05→21:14)
[2019-02-25] MEDS: levETIRAcetam TAB* 500 MG PO SCH (21:12)
--- NOTE | 2019-02-25 23:03 | PN ---
Progress Note - Progress Note Date of Service: 02/25/19 Note: Neurosurgery team reviewed new head CT, there has not been any change with the right basal ganglia bleed. Patient was seen this morning, she is stable no changes in her physical exam. At this time no intervention from neurosurgery is indicated.
[2019-02-26] MEDS: levETIRAcetam TAB* 500 MG PO SCH ×2 (09:08→20:30)
[2019-02-26] MEDS: Calcium Carbonate CHEW TAB* 500 MG (TUMS) PO SCH ×2 (09:09→22:05)
[2019-02-26] MEDS: Potassium Chlor TAB* 20 MEQ TAB.ER PO SCH (09:09)
[2019-02-26 09:30] LABS: Calcium 9.1 mg/dL (8.6-10.3); EGFR African American 116.4 (>60); EGFR Non-African American 96.2 (>60); Magnesium 1.7 mg/dL (1.9-2.7); Potassium 3.6 mmol/L (3.5-5.0)
--- NOTE | 2019-02-26 16:49 | PN ---
Subjective Date of Service: 02/26/19 Interval History: Transferred from ICU yesterday. No acute events. Pt worked with PT this morning and feels like she is nearing her baseline. Objective Active Medications: Acetaminophen (Tylenol Tab*) 650 mg PO Q4H PRN PRN Reason: PAIN - MILD Last Admin: 02/24/19 14:20 Dose: 650 mg Calcium Carbonate (Tums*) 500 mg PO BID [facility] Last Admin: 02/26/19 09:09 Dose: 500 mg Hydralazine HCl (Apresoline Iv*) 5 mg IV SLOW PU Q6H PRN PRN Reason: SYSTOLIC BP GREATER THAN: Labetalol HCl (Trandate Iv*) 10 mg IV PUSH Q6H PRN PRN Reason: BLOOD PRESSURE Levetiracetam (Keppra Tab*) 1,500 mg PO BID [facility] Last Admin: 02/26/19 09:08 Dose: 1,500 mg Melatonin (Melatonin) 3 mg PO BEDTIME [facility] Last Admin: 02/25/19 21:14 Dose: 3 mg Ondansetron HCl (Zofran Inj*) 4 mg IV Q4H PRN PRN Reason: NAUSEA/VOMITING Vital Signs - 8 hr 02/26/19 02/26/19 11:15 15:15 Temperature 97.9 F 97.9 F Pulse Rate 78 76 Respiratory 20 20 Rate Blood Pressure 146/63 136/61 (mmHg) O2 Sat by Pulse 97 98 Oximetry Oxygen Devices in Use Now: None Appearance: frail appearing elderly woman in NAD Eyes: No Scleral Icterus Ears/Nose/Mouth/Throat: Clear Oropharnyx, Mucous Membranes Moist Neck: NL Appearance and Movements; NL JVP, Trachea Midline Respiratory: Symmetrical Chest Expansion and Respiratory Effort, Clear to Auscultation Cardiovascular: NL Sounds; No Murmurs; No JVD, RRR Extremities: No Edema Skin: No Rash or Ulcers Neurological: Alert and Oriented x 3, - - LLE with hip flexion and knee extention 4/5; CN2-12 intact Result Diagrams: 02/25/19 10:47 02/26/19 09:03 Microbiology and Other Data: Microbiology 02/23/19 20:46 Urine Culture - Final Urine 02/24/19 00:34 Nasal Screen MRSA (PCR) - Final Nasal Mrsa Not Detected Assess/Plan/Problems-Billing Assessment: 78W with HTN, HLD, macular degeneration, chronic LBP, presents with L-sided numbness and tingling, found to have R ganglial capsular hemorrhage with possible 2mm aneurysm. - Patient Problems (1) Basal ganglia hemorrhage Comment: Acute R basal ganglia hemorrhagic stroke. - Keppra x 7 days for seizure ppx - PT/OT - NSGY/Neuro following - maintain SBP < 140 (2) DVT prophylaxis Current Visit: Yes Status: Acute Code(s): Z29.9 - ENCOUNTER FOR PROPHYLACTIC MEASURES, UNSPECIFIED SNOMED Code(s): 744145134 Comment: SCDs; med contraindicated in setting of bleed
[2019-02-26] MEDS: Melatonin 3 MG TAB PO SCH (20:31)
[2019-02-26] MEDS: Acetaminophen TAB* 325 MG PO PRN (20:31)
[2019-02-27 05:47] LABS: BUN/Creatinine Ratio 20.4 (8-20); Calcium 8.9 mg/dL (8.6-10.3); EGFR African American 131.4 (>60); EGFR Non-African American 108.6 (>60); Magnesium 1.8 mg/dL (1.9-2.7); Potassium 3.8 mmol/L (3.5-5.0)
[2019-02-27] MEDS: Calcium Carbonate CHEW TAB* 500 MG (TUMS) PO SCH (09:48)
[2019-02-27] MEDS: levETIRAcetam TAB* 500 MG PO SCH (09:48)
[2019-02-27] MEDS: Acetaminophen TAB* 325 MG PO PRN (13:30)
[2019-02-27 14:21] VITALS: BP 135/72
--- NOTE | 2019-02-27 18:21 | PN ---
PROGRESS NOTE: DATE OF SERVICE: 02/27/19 PATIENT OF: Dr. Phillips; Dr. Velazco; Dr. Michael Taylor HISTORY: This is a neurologic followup on this 78-year-old woman who had a right basal ganglia bleed. She has done well. She had a little bit of tingling this morning on the left side that has passed and is completely normal. Because of that, we repeated a CT scan, which I reviewed and was unchanged from her prior study last done 3 days ago. It is still showing the small right basal ganglia bleed in the thalamus and chronic small vessel ischemic disease. PHYSICAL EXAMINATION: Temperature 98, pulse 82, respirations 20, blood pressure 132/69. She is alert and oriented with normal speech and comprehension. Cranial nerves II through XII are intact. Motor exam revealed normal tone and strength. She could walk independently and was not in danger of falling. She did steady herself at times by gently touching a wall. She has been around the floor without any support using a walker. Chest: Clear. Cardiovascular: Regular rate and rhythm. Abdomen is soft with positive bowel sounds. DIAGNOSTIC STUDIES/LAB DATA: CT scan was as discussed earlier. Her CMP was normal today. Magnesium is 1.8. ASSESSMENT AND PLAN: Jahaira has had a right basal ganglia bleed presumably due to her chronic high blood pressure and her bleed is stable. Her blood pressure will be managed by Dr. Phillips as an outpatient and he is aware that the patient is here. She is not on any antiplatelet products and this is how it should be. She has a possible carotid aneurysm in supraclinoid region and she is being referred to Dr. Taylor to see if he feels any further imaging needs to be done acutely or whether she needs repeat CTA followup of this. I will be glad to see in followup as necessary. I also think that it would be reasonable for her to have a physical therapy referral. Thank you for sharing her case. [id number]/[facility] #: [id number] [place]
--- NOTE | 2019-02-27 19:59 | DS ---
CC: Dr. Alex Phillips; Dr. Campbell; Dr. Mims * DISCHARGE SUMMARY: DATE OF ADMISSION: 02/23/19 DATE OF DISCHARGE: 02/27/19 PRIMARY CARE PHYSICIAN: Alex Phillips MD. PRIMARY DIAGNOSES: 1. Right basal ganglia hemorrhage. 2. Left internal carotid artery aneurysm. 3. Hypertension. SECONDARY DIAGNOSES: 1. Dyslipidemia. 2. Macular degeneration. 3. Chronic low back pain. CONSULTS: 1. Dr. Campbell of Neurosurgery. 2. Dr. Mims of Neurology. DISCHARGE MEDICATIONS: 1. Atorvastatin 10 mg nightly. 2. Levetiracetam 1.5 g twice a day for 3 more days. 3. Melatonin 3 mg at bedtime. 4. PreserVision Soft Gels twice a day. HISTORY OF PRESENT ILLNESS: Ms. 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 Later when she was trying to stand up, her left leg began to feel very weak. These motor symptoms were associated with nausea, but she denied vomiting. She reports 2 loose bowel movements on day of presentation. She denied double vision, chest pain, shortness of breath, abdominal pain, dysuria. She did report mild headache associated with the presenting symptoms. HOSPITAL COURSE: By the time of initial interview, the patient reports that her weakness had resolved and she no longer was experiencing the numbness that she felt before. A raquel lundberg was called in the ER and a CAT scan was performed, which showed right basal ganglia intraparenchymal hemorrhage. CTA was performed, which showed left ICA aneurysm. Initially, the patient was considered for transport to [facility] in [place]; however, after conversation between ER physician and Neurosurgery, it was deemed that she would not need vascular intervention at this time. Case was discussed with neurosurgeon Dr. Campbell and Neurologist Dr. Mims who felt that the patient was stable enough for admission to the ICU in this institution for close monitoring. Her blood pressure on presentation was 177/109, so she was also treated for hypertensive emergency and admitted to the ICU for further care. She was initially started on nicardipine drip. She was quickly able to come off the nicardipine drip and instead was switched to labetalol and hydralazine as needed; however, her blood pressures remained at goal under systolic 140 and she did not require her p.r.n. 's. For the remainder of her hospital stay, she was not given any blood pressure medications and her average systolic blood pressure was in the 120s and 130s. Her strength slowly returned and the patient worked well with Physical Therapy. The patient made it clear that her goal was to be able to return home with home physical therapy, and this was the recommendation by day of discharge. A repeat head CT 24 hours after initial showed no interval change in her intracranial hemorrhage. She was transferred to the floor for further management where she continued to work with Physical Therapy. On day of discharge, a 10-point review of systems was performed and the patient reports that in the morning she thinks she experienced a recurrence of her left leg tingling, which quickly resolved. She was still able to walk the floor with Physical Therapy, with a walker afterwards; however, due to her recurrence of her symptoms, a brain CT was repeated again. This was approximately 4 days after the first CT Brain, and it showed that her intraparenchymal hemorrhage was stable. She denied other symptoms on review of systems and she was deemed safe to return home. The patient reports excellent local social support. PHYSICAL EXAMINATION: Afebrile, heart rate 76, blood pressure 135/72, respiratory rate 18, oxygen saturation 97% on room air. In general, she is a frail appearing elderly woman, in no acute distress who is alert and very pleasant. Neck: Supple. No JVD. HEENT: Moist mucous membranes. OP clear. Lungs: Clear to auscultation bilaterally. Heart: Regular rate and rhythm. No murmurs, gallops, or rubs. Extremities: Warm and well perfused without evidence of edema. Skin: Warm and dry without rash. Neuro: A and O x3. No slurred speech. CN II through XII intact. Possible mild left pronator drift in the left upper extremity. Strength 5/5 in 4 extremities. Sensation intact in 4 extremities equally. PERTINENT STUDIES: CBC notable for anemia to 10.5 with unknown baseline and MCV 83. BMP is notable for slightly low magnesium to 1.8, which continued to be repleted throughout hospitalization. UA clear. Brain CT on 02/23/19 with right gangliocapsular hemorrhage measuring 13 mm with no mass effect or midline shift. Age-related involutional change with findings of chronic microvascular ischemic disease. Brain CT on 02/27/19 with stable intraparenchymal hemorrhage of the right thalamus, chronic small vessel ischemic change. Head CTA with suspected 2-mm aneurysm at the inferior wall of the left supraclinoid ICA. No acute vascular abnormality identified in the neck. Chest x-ray with no evidence for active cardiopulmonary disease. Positive for hiatal hernia. DISCHARGE PLAN: The patient should follow up closely with her primary care physician as well as Dr. Michael Taylor of Neurosurgery for possible intervention for known aneurysm. She will continue Keppra for 3 more days to complete a 7-day course of seizure prophylaxis, per neurosurgical consult. She should continue to monitor her blood pressures every day and reinitiate treatment for hypertension if her blood pressures are above goal; however, she is not discharged on blood pressure medication given her normal blood pressures throughout admission. The patient will need a followup MRI with and without contrast in 3 months in order to exclude other etiologies for her intracranial hemorrhage. The patient was educated on return precautions, which include but are not limited to recurrence of headache or focal neurologic symptoms. She should have a healthy diet, low in processed foods and resume activity as tolerated. DISPOSITION: To home. CONDITION: Improved. TIME SPENT: Approximately 60 minutes was spent on discharge of this patient, more than half of which was spent on care coordination at bedside for interview and exam. [id number]/[facility] #: [id number] [place]
== END 2019-02-27 15:49 | disposition home health service (06) | DRG 65 ==
LOC: ED 18:46 → ICU 23:06 → MEDTELE 02-25 14:40
PROVIDERS: ADMIT Internal Medicine; ATTEND Internal Medicine
DX: I61.9 Nontraumatic intracerebral hemorrhage, unspecified (principal); E87.1 Hypo-osmolality and hyponatremia; I16.1 Hypertensive emergency; I67.1 Cerebral aneurysm, nonruptured; E83.51 Hypocalcemia; E78.00 Pure hypercholesterolemia, unspecified; G83.24 Monoplegia of upper limb affecting left nondominant side; E78.5 Hyperlipidemia, unspecified; E87.6 Hypokalemia; I16.0 Hypertensive urgency; H35.30 Unspecified macular degeneration; G89.29 Other chronic pain; D64.9 Anemia, unspecified; Z79.899 Other long term (current) drug therapy
CPT/HCPCS: 36415; 70450; 70496; 70498; 71045; 80048; 80053; 80061; 81003; 81015; 83605; 83735; 84484; 85025; 85027; 85610; 85730; 87086; 87641; 93005; 96365; 96375; 99285; A9270-GY; G8978-GP-CK; G8978-GP-CL; G8979-GP-CI; G8979-GP-CJ; Q9967

== ENCOUNTER 2019-03-14 19:16 | Observation (INO) | payer MEDICARE ==
[2019-03-14] MEDS ORDERED: NS 0.9% 1000 ML** 1,000 ML IV ONE (19:24)
--- OUTSIDE RECORDS SUMMARY | 2019-03-14 19:31 | XMS REPORT ---
:1940 Author Organization [facility] Care Team Providers Name Role Phone Unavailable Unavailable Unavailable Problems Condition Condition Condition Status Onset Resolution Last Treating Comments Name Details Category Date Date Treatment Clinician Date Pain frequent Pain Mgmt Active 2018-04 Sushil pain 05-03 [place] 13:25: [id number] Pain knowledge/s Pain Mgmt Active 2018-04 Sushil kill 05-03 [place] deficit: pt 13:25: [id number] 00 Respiratory dyspnea Respirator Active 2018-04 Sushil present y 05-03 [place] 13:25: [id number] 00 Respiratory knowledge/s Respirator Active 2018-04 Sushil kill y 05-03 [place] deficit: pt 13:25: [id number] 00 Nutrition nutritional Nutrition Active 2018-04 Sushil restriction 05-03 [place] s 13:25: [id number] 00 Nutrition knowledge/s Nutrition Active 2018-04 Sushil kill 05-03 [place] deficit: pt 13:25: [id number] 00 Safety knowledge/s Safety Active 2018-04 Sushil kill 05-03 [place] deficit: pt 13:25: [id number] 00 Strength/To knowledge/s PT: Active 2018-04 Sushil ne/Motor kill Strength 05-03 [place] Control deficit LE: 13:25: [id number] pt 00 Bed transfer PT/OT: Bed Active 2018-04 Sushil Mobility/Tr deficit: Mobility/T 05-03 [place] ansfer shower/tub ransfer 13:25: [id number] 00 Bed knowledge/s PT/OT: Bed Active 2018-04 Sushil Mobility/Tr kill Mobility/T 05-03 [place] ansfer deficit: pt ransfer 13:25: [id number] 00 Balance/End balance/coordinator of placement PT/OT: Active 2018-04 Sushil urance rdination Balance/En 05-03 [place] deficit durance 13:25: [id number] 00 Balance/End endurance PT/OT: Active 2018-04 Sushil urance deficit Balance/En 05-03 [place] durance 13:25: [id number] 00 Balance/End knowledge/s PT/OT: Active 2018-04 Sushil urance kill Balance/En 05-03 [place] deficit: pt durance 13:25: [id number] 00 Gait/Locomo gait PT/OT: Active 2018-04 Sushil tion assistive Gait/Locom 05-03 [place] problems device otion 13:25: [id number] present 00 Gait/Locomo knowledge/s PT/OT: Active 2018-04 Sushil tion kill Gait/Locom 05-03 [place] problems deficit: pt otion 13:25: [id number] 00 Gait/Locomo gait PT/OT: Active 2018-04 Sushil tion deficit Gait/Locom 05-03 [place] problems otion 13:25: [id number] 00 Neuro confusion Neuro/Emot Active 2018-04 Chelly present ion 05-07 [place] 09:00: [id number] 00 Neuro anxiety Neuro/Emot Active 2018-04 Chelly present ion 05-07 [place] 09:00: [id number] 00 Activity ADL Activity Active 2018-04 Chelly assistance 05-07 [place] required 09:00: [id number] 00 Activity self-care Activity Active 2018-04 Chelly deficit 05-07 [place] 09:00: [id number] 00 Safety fall risk Safety Active 2018-04 Chelly factor 05-07 [place] present 09:00: [id number] 00 Safety risk for Safety Active 2018-04 Chelly hospitaliza 05-07 [place] tion 09:00: [id number] 00 Medication oral med Meds Active 2018-04 Chelly assistance 05-07 [place] required 09:00: [id number] 00 Medication knowledge/s Meds Active 2018-04 Chelly kill 05-07 [place] deficit: pt 09:00: [id number] 00 Musculoskel transfer Musculoske Active 2018-04 Chelly etal assistance letal 05-07 [place] required 09:00: [id number] 00 Allergies, Adverse Reactions, Alerts Allergy Allergy Status Severity Reaction(s) Onset Inactive Treating Comments Name Type Date Date Clinician Uncoded Unknown Active Unknown Reaction 2019-02 Interface free-text Unknown -12 allergy Medications Ordered Filled Start Stop Current Ordering Indication Dosage Frequency Signature Comments Components Medication Medication Date Date Medication? Clinician (SIG) Name Name atorderrek atorvastati 2018-04 Yes Breiman Unknown Unknown n 10 mg n 10 mg 05-07 Alex SEXTON tablet tablet Vit Vit 2018-04 Yes Breiman Unknown Unknown C/E/Zn/Rashad C/E/Zn/Rashad 05-07 Alex SEXTON r/Lutein/Ze r/Lutein/Ze axan axan melatonin 3 melatonin 3 2018-04 Yes Breiman Unknown Unknown mg tablet mg tablet 05-07 Alex SEXTON amoxicillin amoxicillin 2018-04- Yes Breiman Unknown Unknown 500 mg 500 mg 05-01 Alex SEXTON capsule capsule Tylenol Tylenol 2018-04 Yes Breiman Unknown Unknown Extra Extra 05-07 Alex SEXTON Strength Strength 500 mg 500 mg tablet tablet hydroCHLORO hydroCHLORO 2018-04 Yes Breiman Unknown Unknown thiazide thiazide 05-07 Alex SEXTON 12.5 mg 12.5 mg capsule capsule Vital Signs Vital Name Observation Time Observation Value Comments SYSTOLIC mm[Hg] 2019-03-10 18:08:58 146 mm[Hg] mm[Hg] Method: Sit SYSTOLIC mm[Hg] 2019-03-07 18:08:55 144 mm[Hg] mm[Hg] Method: Stand DIASTOLIC mm[Hg] 2019-03-10 18:08:58 86 mm[Hg] mm[Hg] Method: Sit DIASTOLIC mm[Hg] 2019-03-07 18:08:55 80 mm[Hg] mm[Hg] Method: Stand PULSE 2019-03-10 18:08:58 78 /min /min RESP RATE 2019-03-07 18:08:55 16 /min /min TEMP 2019-03-07 18:08:55 98.4 [degF] Procedures This patient has no known procedures. Results This patient has no known results.
--- OUTSIDE RECORDS SUMMARY | 2019-03-14 19:31 | XMS REPORT ---
:1940 Author Organization [facility] Care Team Providers Name Role Phone Unavailable Unavailable Unavailable Problems This patient has no known problems. Allergies, Adverse Reactions, Alerts Allergy Allergy Status Severity Reaction(s) Onset Inactive Treating Comments Name Type Date Date Clinician Uncoded Unknown Active Unknown Reaction 2019-02 Interface free-text Unknown -12 allergy Medications Ordered Filled Start Stop Current Ordering Indication Dosage Frequency Signature Comments Components Medication Medication Date Date Medication? Clinician (SIG) Name Name atorvastati atorvastati 2017-04 No Unknown Unknown Unknown n 10 mg n 10 mg 1-15 tablet tablet Vit Vit 2017-04 No Unknown Unknown Unknown C/E/Zn/Rashad C/E/Zn/Rashad 1-15 r/Lutein/Ze r/Lutein/Ze axan axan Procedures This patient has no known procedures. Results This patient has no known results.
--- OUTSIDE RECORDS SUMMARY | 2019-03-14 19:31 | XMS REPORT ---
:1940 Author Organization [facility] Care Team Providers Name Role Phone Unavailable Unavailable Unavailable Problems Condition Condition Condition Status Onset Resolution Last Treating Comments Name Details Category Date Date Treatment Clinician Date Pain frequent Pain Mgmt Active 2018-04 Sushil pain 05-03 [place] 13:25: [id number] 00 Pain knowledge/s Pain Mgmt Active 2018-04 Sushil kill 05-03 [place] deficit: pt 13:25: [id number] 00 Respiratory dyspnea Respirator Active 2018-04 Sushil present y 05-03 [place] 13:25: [id number] 00 Respiratory knowledge/s Respirator Active 2018-04 Sushil kill y 05-03 [place] deficit: pt 13:25: [id number] 00 Nutrition nutritional Nutrition Active 2018-04 Sushil restriction 05-03 [place] s 13:25: [id number] 00 Nutrition knowledge/s Nutrition Active 2018-04 Sushil kill 05-03 [place] deficit: pt 13:25: [id number] 00 Safety knowledge/s Safety Active 2018-04 Sushil kill 05-03 [place] deficit: pt 13:25: [id number] 00 Strength/To knowledge/s PT: Active 2018-04 Sushil ne/Motor kill Strength 05-03 [place] Control deficit LE: 13:25: [id number] pt 00 Bed transfer PT/OT: Bed Active 2018-04 Sushil Mobility/Tr deficit: Mobility/T 05-03 [place] ansfer shower/tub ransfer 13:25: [id number] 00 Bed knowledge/s PT/OT: Bed Active 2018-04 Sushil Mobility/Tr kill Mobility/T 05-03 [place] ansfer deficit: pt ransfer 13:25: [id number] 00 Balance/End balance/cook boat PT/OT: Active 2018-04 Sushil urance rdination Balance/En 05-03 [place] deficit durance 13:25: [id number] 00 Balance/End endurance PT/OT: Active 2018-04 Sushil urance deficit Balance/En 05-03 [place] durance 13:25: [id number] 00 Balance/End knowledge/s PT/OT: Active 2018-04 Sushil urance kill Balance/En 05-03 [place] deficit: pt durance 13:25: [id number] 00 Gait/Locomo gait PT/OT: Active 2018-04 Sushil tion assistive Gait/Locom 05-03 [place] problems device otion 13:25: [id number] present 00 Gait/Locomo knowledge/s PT/OT: Active 2018-04 Sushil tion kill Gait/Locom 05-03 [place] problems deficit: pt otion 13:25: [id number] 00 Gait/Locomo gait PT/OT: Active 2018-04 Sushil tion deficit Gait/Locom 05-03 [place] problems otion 13:25: [id number] 00 Neuro confusion Neuro/Emot Active 2018-04 Chelly present ion 05-07 [place] 09:00: [id number] 00 Neuro anxiety Neuro/Emot Active 2018-04 Chelly present ion 05-07 [place] 09:00: [id number] 00 Activity ADL Activity Active 2018-04 Chelly assistance 05-07 [place] required 09:00: [id number] 00 Activity self-care Activity Active 2018-04 Chelly deficit 05-07 [place] 09:00: [id number] 00 Safety fall risk Safety Active 2018-04 Chelly factor 05-07 [place] present 09:00: [id number] 00 Safety risk for Safety Active 2018-04 Chelly hospitaliza 05-07 [place] tion 09:00: [id number] 00 Medication oral med Meds Active 2018-04 Chelly assistance 05-07 [place] required 09:00: [id number] 00 Medication knowledge/s Meds Active 2018-04 Chelly kill 05-07 [place] deficit: pt 09:00: [id number] 00 Musculoskel transfer Musculoske Active 2018-04 Chelly etal assistance letal 05-07 [place] required 09:00: [id number] 00 Allergies, Adverse Reactions, Alerts Allergy Allergy [...]
--- OUTSIDE RECORDS SUMMARY | 2019-03-14 19:31 | XMS REPORT ---
:1940 Author Organization [facility] Care Team Providers Name Role Phone Unavailable [...]
--- OUTSIDE RECORDS SUMMARY | 2019-03-14 19:31 | XMS REPORT ---
:1940 Author Organization [facility] [place] Care Team Providers Name Role Phone Unavailable [...]
--- OUTSIDE RECORDS SUMMARY | 2019-03-14 19:31 | XMS REPORT ---
:1940 Author Organization [facility] Care Team Providers Name Role Phone Unavailable Unavailable Unavailable Problems Condition Condition Condition Status Onset Resolution Last Treating Comments Name Details Category Date Date Treatment Clinician Date Pain frequent Pain Mgmt Active 2018-04 Sushil pain 05-03 [place] 13:25: [id number] 00 Pain knowledge/s Pain Mgmt Active 2018-04 Sushil kill 05-03 [place] deficit: pt 13:25: [id number] 00 Respiratory dyspnea Respirator Active 2018-04 Sushil present y 05-03 [place] 13:25: [id number] 00 Respiratory knowledge/s Respirator Active 2018-04 Sushil kill y 05-03 [place] deficit: pt 13:25: [id number] 00 Nutrition nutritional Nutrition Active 2018-04 Sushil restriction 05-03 [place] s 13:25: [id number] 00 Nutrition knowledge/s Nutrition Active 2018-04 Sushil kill 05-03 [place] deficit: pt 13:25: [id number] 00 Safety knowledge/s Safety Active 2018-04 Sushil kill 05-03 [place] deficit: pt 13:25: [id number] 00 Strength/To knowledge/s PT: Active 2018-04 Sushil ne/Motor kill Strength 05-03 [place] Control deficit LE: 13:25: [id number] pt 00 Bed transfer PT/OT: Bed Active 2018-04 Sushil Mobility/Tr deficit: Mobility/T 05-03 [place] ansfer shower/tub ransfer 13:25: [id number] 00 Bed knowledge/s PT/OT: Bed Active 2018-04 Sushil Mobility/Tr kill Mobility/T 05-03 [place] ansfer deficit: pt ransfer 13:25: [id number] 00 Balance/End balance/magnetic resonance imaging coordinator PT/OT: Active 2018-04 Sushil urance rdination Balance/En 05-03 [place] deficit durance 13:25: [id number] 00 Balance/End endurance PT/OT: Active 2018-04 Sushil urance deficit Balance/En 05-03 [place] durance 13:25: [id number] 00 Balance/End knowledge/s PT/OT: Active 2018-04 Sushil urance kill Balance/En 05-03 [place] deficit: pt durance 13:25: [id number] 00 Gait/Locomo gait PT/OT: Active 2018-04 Sushil tion assistive Gait/Locom 05-03 [place] problems device otion 13:25: [id number] present 00 Gait/Locomo knowledge/s PT/OT: Active 2018-04 Sushil tion kill Gait/Locom 05-03 [place] problems deficit: pt otion 13:25: [id number] 00 Gait/Locomo gait PT/OT: Active 2018-04 Sushil tion deficit Gait/Locom 05-03 [place] problems otion 13:25: [id number] 00 Neuro confusion Neuro/Emot Active 2018-04 Chelly present ion 05-07 [place] 09:00: [id number] 00 Neuro anxiety Neuro/Emot Active 2018-04 Chelly present ion 05-07 [place] 09:00: [id number] 00 Activity ADL Activity Active 2018-04 Chelly assistance 05-07 [place] required 09:00: [id number] 00 Activity self-care Activity Active 2018-04 Chelly deficit 05-07 [place] 09:00: [id number] 00 Safety fall risk Safety Active 2018-04 Chelly factor 05-07 [place] present 09:00: [id number] 00 Safety risk for Safety Active 2018-04 Chelly hospitaliza 05-07 [place] tion 09:00: [id number] 00 Medication oral med Meds Active 2018-04 Chelly assistance 05-07 [place] required 09:00: [id number] 00 Medication knowledge/s Meds Active 2018-04 Chelly kill 05-07 [place] deficit: pt 09:00: [id number] 00 Musculoskel transfer Musculoske Active 2018-04 Chelly etal assistance letal 05-07 [place] required 09:00: [id number] 00 Allergies, Adverse Reactions, Alerts Allergy Allergy [...]
--- OUTSIDE RECORDS SUMMARY | 2019-03-14 19:31 | XMS REPORT ---
:1940 Author Organization [facility] Care Team Providers Name Role Phone Unavailable Unavailable Unavailable Problems Condition Condition Condition Status Onset Resolution Last Treating Comments Name Details Category Date Date Treatment Clinician Date Pain frequent Pain Mgmt Active 2018-04 Sushil pain 05-03 [place] 13:25: [id number] 00 Pain knowledge/s Pain Mgmt Active 2018-04 Sushil kill 05-03 [place] deficit: pt 13:25: [id number] 00 Respiratory dyspnea Respirator Active 2018-04 Sushil present y 05-03 [place] 13:25: [id number] 00 Respiratory knowledge/s Respirator Active 2018-04 Sushil kill y 05-03 [place] deficit: pt 13:25: [id number] 00 Nutrition nutritional Nutrition Active 2018-04 Sushil restriction 05-03 [place] s 13:25: [id number] 00 Nutrition knowledge/s Nutrition Active 2018-04 Sushil kill 05-03 [place] deficit: pt 13:25: [id number] 00 Safety knowledge/s Safety Active 2018-04 Sushil kill 05-03 [place] deficit: pt 13:25: [id number] 00 Strength/To knowledge/s PT: Active 2018-04 Sushil ne/Motor kill Strength 05-03 [place] Control deficit LE: 13:25: [id number] pt 00 Bed transfer PT/OT: Bed Active 2018-04 Sushil Mobility/Tr deficit: Mobility/T 05-03 [place] ansfer shower/tub ransfer 13:25: [id number] 00 Bed knowledge/s PT/OT: Bed Active 2018-04 Sushil Mobility/Tr kill Mobility/T 05-03 [place] ansfer deficit: pt ransfer 13:25: [id number] 00 Balance/End balance/grill prep cook PT/OT: Active 2018-04 Sushil urance rdination Balance/En 05-03 [place] deficit durance 13:25: [id number] 00 Balance/End endurance PT/OT: Active 2018-04 Sushil urance deficit Balance/En 05-03 [place] durance 13:25: [id number] 00 Balance/End knowledge/s PT/OT: Active 2018-04 Sushil urance kill Balance/En 05-03 [place] deficit: pt durance 13:25: [id number] 00 Gait/Locomo gait PT/OT: Active 2018-04 Sushil tion assistive Gait/Locom 05-03 [place] problems device otion 13:25: [id number] present 00 Gait/Locomo knowledge/s PT/OT: Active 2018-04 Sushil tion kill Gait/Locom 05-03 [place] problems deficit: pt otion 13:25: [id number] 00 Gait/Locomo gait PT/OT: Active 2018-04 Sushil tion deficit Gait/Locom 05-03 [place] problems otion 13:25: [id number] 00 Neuro confusion Neuro/Emot Active 2018-04 Chelly present ion 05-07 [place] 09:00: [id number] 00 Neuro anxiety Neuro/Emot Active 2018-04 Chelly present ion 05-07 [place] 09:00: [id number] 00 Activity ADL Activity Active 2018-04 Chelly assistance 05-07 [place] required 09:00: [id number] 00 Activity self-care Activity Active 2018-04 Chelly deficit 05-07 [place] 09:00: [id number] 00 Safety fall risk Safety Active 2018-04 Chelly factor 05-07 [place] present 09:00: [id number] 00 Safety risk for Safety Active 2018-04 Chelly hospitaliza 05-07 [place] tion 09:00: [id number] 00 Medication oral med Meds Active 2018-04 Chelly assistance 05-07 [place] required 09:00: [id number] 00 Medication knowledge/s Meds Active 2018-04 Chelly kill 05-07 [place] deficit: pt 09:00: [id number] 00 Musculoskel transfer Musculoske Active 2018-04 Chelly etal assistance letal 05-07 [place] required 09:00: [id number] 00 Allergies, Adverse Reactions, Alerts Allergy Allergy [...] Observation Time Observation Value Comments SYSTOLIC mm[Hg] 2019-03-07 18:08:55 148 mm[Hg] mm[Hg] Method: Sit SYSTOLIC mm[Hg] 2019-03-07 18:08:55 144 mm[Hg] mm[Hg] Method: Stand DIASTOLIC mm[Hg] 2019-03-07 18:08:55 80 mm[Hg] mm[Hg] Method: Sit DIASTOLIC mm[Hg] 2019-03-07 18:08:55 80 mm[Hg] mm[Hg] Method: Stand PULSE 2019-03-07 18:08:55 78 /min /min RESP RATE 2019-03-07 18:08:55 16 /min /min TEMP 2019-03-07 18:08:55 98.4 [degF] Procedures This patient has no known procedures. Results This patient has no known results.
--- OUTSIDE RECORDS SUMMARY | 2019-03-14 19:31 | XMS REPORT ---
:1940 Author Organization [facility] Care Team Providers Name Role Phone Unavailable [...]
--- OUTSIDE RECORDS SUMMARY | 2019-03-14 19:31 | XMS REPORT ---
:1940 Author Organization [facility] [place] Care Team Providers Name Role Phone Unavailable Unavailable Unavailable Problems This patient has no known problems. Allergies, Adverse Reactions, Alerts Allergy Allergy Status Severity Reaction(s) Onset Inactive Treating Comments Name Type Date Date Clinician Unknown None Active Unknown None Unknown No Known Allergies For This Patient Medications Ordered Filled Start Stop Current Ordering Indication Dosage Frequency Signature Comments Components Medication Medication Date Date Medication? Clinician (SIG) Name Name No Known No Known No None None None Medications Medications For This For This Patient Patient Procedures This patient has no known procedures. Results This patient has no known results.
--- OUTSIDE RECORDS SUMMARY | 2019-03-14 19:31 | XMS REPORT ---
:1940 Author Organization [facility] Care Team Providers Name Role Phone Unavailable Unavailable Unavailable Problems Condition Condition Condition Status Onset Resolution Last Treating Comments Name Details Category Date Date Treatment Clinician Date Pain frequent Pain Mgmt Active 2018-04 Sushil pain 05-03 [place] 13:25: [id number] Pain knowledge/s Pain Mgmt Active 2018-04 Sushil kill 05-03 [place] deficit: pt 13:25: [id number] 00 Respiratory dyspnea Respirator Active 2018-04 Sushil present y 05-03 [place] 13:25: [id number] 00 Respiratory knowledge/s Respirator Active 2018-04 Sushil kill y 05-03 [place] deficit: pt 13:25: [id number] 00 Nutrition nutritional Nutrition Active 2018-04 Sushil restriction 05-03 [place] s 13:25: [id number] 00 Nutrition knowledge/s Nutrition Active 2018-04 Sushil kill 05-03 [place] deficit: pt 13:25: [id number] 00 Safety knowledge/s Safety Active 2018-04 Sushil kill 05-03 [place] deficit: pt 13:25: [id number] 00 Strength/To knowledge/s PT: Active 2018-04 Sushil ne/Motor kill Strength 05-03 [place] Control deficit LE: 13:25: [id number] pt 00 Bed transfer PT/OT: Bed Active 2018-04 Sushil Mobility/Tr deficit: Mobility/T 05-03 [place] ansfer shower/tub ransfer 13:25: [id number] 00 Bed knowledge/s PT/OT: Bed Active 2018-04 Sushil Mobility/Tr kill Mobility/T 05-03 [place] ansfer deficit: pt ransfer 13:25: [id number] 00 Balance/End balance/branch operations coordinator PT/OT: Active 2018-04 Sushil urance rdination Balance/En 05-03 [place] deficit durance 13:25: [id number] 00 Balance/End endurance PT/OT: Active 2018-04 Sushil urance deficit Balance/En 05-03 [place] durance 13:25: [id number] 00 Balance/End knowledge/s PT/OT: Active 2018-04 Sushil urance kill Balance/En 05-03 [place] deficit: pt durance 13:25: [id number] 00 Gait/Locomo gait PT/OT: Active 2018-04 Sushil tion assistive Gait/Locom 05-03 [place] problems device otion 13:25: [id number] present 00 Gait/Locomo knowledge/s PT/OT: Active 2018-04 Sushil tion kill Gait/Locom 05-03 [place] problems deficit: pt otion 13:25: [id number] 00 Gait/Locomo gait PT/OT: Active 2018-04 Sushil tion deficit Gait/Locom 05-03 [place] problems otion 13:25: [id number] 00 Neuro confusion Neuro/Emot Active 2018-04 Chelly present ion 05-07 [place] 09:00: [id number] 00 Neuro anxiety Neuro/Emot Active 2018-04 Chelly present ion 05-07 [place] 09:00: [id number] 00 Activity ADL Activity Active 2018-04 Chelly assistance 05-07 [place] required 09:00: [id number] 00 Activity self-care Activity Active 2018-04 Chelly deficit 05-07 [place] 09:00: [id number] 00 Safety fall risk Safety Active 2018-04 Chelly factor 05-07 [place] present 09:00: [id number] 00 Safety risk for Safety Active 2018-04 Chelly hospitaliza 05-07 [place] tion 09:00: [id number] 00 Medication oral med Meds Active 2018-04 Chelly assistance 05-07 [place] required 09:00: [id number] 00 Medication knowledge/s Meds Active 2018-04 Chelly kill 05-07 [place] deficit: pt 09:00: [id number] 00 Musculoskel transfer Musculoske Active 2018-04 Chelly etal assistance letal 05-07 [place] required 09:00: [id number] 00 Allergies, Adverse Reactions, Alerts Allergy Allergy [...]
--- OUTSIDE RECORDS SUMMARY | 2019-03-14 19:31 | XMS REPORT ---
:1940 Author Organization [facility] Care Team Providers Name Role Phone Unavailable Unavailable Unavailable Problems Condition Condition Condition Status Onset Resolution Last Treating Comments Name Details Category Date Date Treatment Clinician Date Pain frequent Pain Mgmt Active 2018-04 Chelly pain 05-07 [place] 09:00: [id number] 00 Respiratory dyspnea Respirator Active 2018-04 Chelly present y 05-07 [place] 09:00: [id number] 00 Nutrition nutritional Nutrition Active 2018-04 Chelly restriction 05-07 [place] s 09:00: [id number] 00 Neuro confusion Neuro/Emot Active 2018-04 Chelly present ion 05-07 [place] 09:00: [id number] 00 Neuro anxiety Neuro/Emot Active 2018-04 Chelly present ion 05-07 [place] 09:00: [id number] 00 Activity ADL Activity Active 2018-04 Chelly assistance 05-07 [place] required 09:00: [id number] 00 Activity self-care Activity Active 2018-04 Chelly deficit 05-07 [place] 09:00: [id number] 00 Safety fall risk Safety Active 2018-04 Chelly factor 05-07 [place] present 09:00: [id number] 00 Safety risk for Safety Active 2018-04 Ch[place]ly hospitaliza 05-07 [place] tion 09:00: [id number] 00 Medication oral med Meds Active 2018-04 Chelly assistance 05-07 [place] required 09:00: [id number] 00 Medication knowledge/s Meds Active 2018-04 Chelly kill 05-07 [place] deficit: pt 09:00: [id number] 00 Musculoskel transfer Musculoske Active 2018-04 Chelly etal assistance letal 05-07 [place] required 09:00: [id number] 00 Allergies, Adverse Reactions, Alerts Allergy Allergy Status Severity Reaction(s) Onset Inactive Treating Comments Name Type Date Date Clinician Uncoded Unknown Active Unknown Reaction 2019-02 Interface free-text Unknown -12 allergy Medications Ordered Filled Start Stop Current Ordering Indication Dosage Frequency Signature Comments Components Medication Medication Date Date Medication? Clinician (SIG) Name Name atorderrek [email or web address] 2018-04 Yes Breiman Unknown Unknown n 10 [...]
--- OUTSIDE RECORDS SUMMARY | 2019-03-14 19:31 | XMS REPORT ---
:1940 Author Organization [facility] Care Team Providers Name Role Phone Unavailable Unavailable Unavailable Problems Condition Condition Condition Status Onset Resolution Last Treating Comments Name Details Category Date Date Treatment Clinician Date Pain frequent Pain Mgmt Active 2018-04 Sushil pain 05-03 [place] 13:25: [id number] 00 Pain knowledge/s Pain Mgmt Active 2018-04 Sushil kill 05-03 [place] deficit: pt 13:25: [id number] 00 Respiratory dyspnea Respirator Active 2018-04 Sushil present y 05-03 [place] 13:25: [id number] 00 Respiratory knowledge/s Respirator Active 2018-04 Sushil kill y 05-03 [place] deficit: pt 13:25: [id number] 00 Nutrition nutritional Nutrition Active 2018-04 Sushil restriction 05-03 [place] s 13:25: [id number] 00 Nutrition knowledge/s Nutrition Active 2018-04 Sushil kill 05-03 [place] deficit: pt 13:25: [id number] 00 Safety knowledge/s Safety Active 2018-04 Sushil kill 05-03 [place] deficit: pt 13:25: [id number] 00 Strength/To knowledge/s PT: Active 2018-04 Sushil ne/Motor kill Strength 05-03 [place] Control deficit LE: 13:25: [id number] pt 00 Bed transfer PT/OT: Bed Active 2018-04 Sushil Mobility/Tr deficit: Mobility/T 05-03 [place] ansfer shower/tub ransfer 13:25: [id number] 00 Bed knowledge/s PT/OT: Bed Active 2018-04 Sushil Mobility/Tr kill Mobility/T 05-03 [place] ansfer deficit: pt ransfer 13:25: [id number] 00 Balance/End balance/measurement coordinator PT/OT: Active 2018-04 Sushil urance rdination Balance/En 05-03 [place] deficit durance 13:25: [id number] 00 Balance/End endurance PT/OT: Active 2018-04 Sushil urance deficit Balance/En 05-03 [place] durance 13:25: [id number] 00 Balance/End knowledge/s PT/OT: Active 2018-04 Sushil urance kill Balance/En 05-03 [place] deficit: pt durance 13:25: [id number] 00 Gait/Locomo gait PT/OT: Active 2018-04 Sushil tion assistive Gait/Locom 05-03 [place] problems device otion 13:25: [id number] 00 Gait/Locomo knowledge/s PT/OT: Active 2018-04 Sushil tion kill Gait/Locom 05-03 [place] problems deficit: pt otion 13:25: [id number] 00 Gait/Locomo gait PT/OT: Active 2018-04 Sushil tion deficit Gait/Locom 05-03 [place] problems otion 13:25: [id number] 00 Neuro confusion Neuro/Emot Active 2018-04 Chelly present ion 05-07 [place] 09:00: [id number] 00 Neuro anxiety Neuro/Emot Active 2018-04 Chelly present ion 05-07 [place] 09:00: [id number] 00 Activity ADL Activity Active 2018-04 Chelly assistance 05-07 [place] required 09:00: [id number] 00 Activity self-care Activity Active 2018-04 Chelly deficit 05-07 [place] 09:00: [id number] 00 Safety fall risk Safety Active 2018-04 Chelly factor 05-07 [place] present 09:00: [id number] 00 Safety risk for Safety Active 2018-04 Chelly hospitaliza 05-07 [place] tion 09:00: [id number] 00 Medication oral med Meds Active 2018-04 Chelly assistance 05-07 [place] required 09:00: [id number] 00 Medication knowledge/s Meds Active 2018-04 Chelly kill 05-07 [place] deficit: pt 09:00: [id number] 00 Musculoskel transfer Musculoske Active 2018-04 Chelly etal assistance letal 05-07 [place] required 09:00: [id number] 00 Allergies, Adverse Reactions, Alerts Allergy Allergy [...]
[2019-03-14 19:33] LABS: ABS Basophils 0.1 10^3/ul (0-0.2); ABS Eosinophils 0.2 10^3/ul (0-0.6); ABS Lymphocytes 2.4 10^3/ul (1.0-4.8); ABS Monocytes 0.6 10^3/ul (0-0.8); ABS Neutrophils 2.2 10^3/ul (1.5-7.7); Eosinophil % 2.8 %; Hematocrit 36 % (35-47); Hemoglobin 12.1 g/dL (12.0-16.0); Lymphocyte % 44.7 %; Mean Corpuscular HGB Conc 33 g/dL (31-36); Mean Corpuscular Hemoglobin 28 pg (27-31); Mean Corpuscular Volume 83 fL (80-97); Mean Platelet Volume 6.6 fL (7.4-10.4); Platelet Count 336 10^3/uL (150-450); Red Blood Count 4.36 10^6 /uL (3.70-4.87); Red Cell Distribution Width 15 % (10-15); White Blood Count 5.5 10^3/uL (3.5-10.8)
--- NOTE | 2019-03-14 19:36 | ED ---
Neurological HPI - HPI Summary HPI Summary: Pt is an 78 y/o F presenting to the ED with a chief complaint of neurological deficit. HAMMAD CANAS CALLED at 192. Pt states she was in the ED on 02/23/19 with a hemorrhagic CVA, and she is presenting with similar symptoms today. She reports L-sided paresthesia, and states that her blood pressure was high this afternoon in comparison with a normal reading this morning. She has been doing physical therapy at home from her prior CTA. Pt to CT at 192. Pt in room at 1933. Pt states she was on a short course of Keppra that has been discontinued d/t some paresthesia that occurred when she was taking the medication. She has had some medication changes since then, and today, she took her BP med around 1300. She states her BP was high, she had increased anxiety, and then noted some numbness on the L side of her body. She denies any specific muscular weakness. - History of Current Complaint Chief Complaint: EDNeurologicalDeficit Stated Complaint: LEG AND FOOT NUMBNESS PER PT Time Seen by Provider: 03/14/19 19:21 Hx Obtained From: Patient Onset/Duration: Gradual Onset, Started hours ago, Still Present Timing: Constant Onset Severity: Moderate Current Severity: Mild Neurological Deficit Location: LUE, LLE Pain Intensity: 0 Pain Scale Used: 0-10 Numeric Character: Numbness/Tingling, Paresthesia Episode Lasting: Hours Aggravating: Unknown Alleviating: Unknown Associated Signs and Symptoms: Positive: Numbness, Change in Medication, Anxiety. Negative: Weakness - Additional Pertinent History Primary Care Physician: ALEJANDRA - Allergy/Home Medications Allergies/Adverse Reactions: Allergies Allergy/AdvReac Type Severity Reaction Status Date / Time No Known Allergies Allergy Verified 03/14/19 19:23 Home Medications: Home Medications Atorvastatin* [Lipitor*] 10 mg PO DAILY 03/14/19 [History Confirmed 03/14/19] Hydrochlorothiazide TAB* [Hydrodiuril TAB*] 12.5 mg PO DAILY 03/14/19 [History Confirmed 03/14/19] Melatonin 3 mg PO BEDTIME PRN 03/14/19 [History Confirmed 03/14/19] PMH/Surg Hx/FS Hx/Imm Hx Previously Healthy: Yes Cardiovascular History: Reports: Hx Hypercholesterolemia, Hx Hypertension - ON MEDICATION, Other Cardiovascular Problems/Disorders - elevated cholesterol-on med Respiratory History: Denies: Other Respiratory Problems/Disorders GI History: Denies: Other GI Disorders History: Denies: Other Problems/Disorders Musculoskeletal History: Reports: Hx Arthritis - rheumatoid arthritis, Hx Scoliosis, Other Musculoskeletal History - Scoliosis, Right lower arm fx repair 1979 Denies: Hx Osteoporosis Sensory History: Reports: Hx Cataracts - bilateral, Hx Contacts or Glasses Denies: Hx Hearing Aid Opthamlomology History: Reports: Hx Cataracts - bilateral, Hx Contacts or Glasses Neurological History: Reports: Hx CVA - hemorrhagic Denies: Hx Headaches, Other Neuro Impairments/Disorders - Cancer History Hx Chemotherapy: No Hx Radiation Therapy: No - Surgical History Surgery Procedure, Year, and Place: Colonoscopies. Fractured right lower arm repair . Partial Hysterectomy age 28 Hx Anesthesia Reactions: No Infectious Disease History: No Infectious Disease History: Denies: Traveled Outside the [place] in Last 30 Days - Family History Known Family History: Negative: Diabetes - Social History Alcohol Use: Occasionally Alcohol Amount: 3-4ox few times a week Hx Substance Use: No Substance Use Type: Reports: None Hx Tobacco Use: No Smoking Status (MU): Never Smoked Tobacco Review of Systems Positive: Other - high blood pressure Positive: Paresthesia, Numbness. Negative: Weakness Positive: Anxious All Other Systems Reviewed And Are Negative: Yes Physical Exam - Summary Physical Exam Summary: Appearance: Well-appearing, Well-nourished, lying in bed comfortably Skin: Warm, dry, no obvious rash Eyes: sclera anicteric, no conjunctival pallor ENT: mucous membranes moist, pharynx appears normal Neck: Supple, nontender Respiratory: Clear to auscultation, no signs of respiratory distress Cardiovascular: Normal S1, S2. No murmurs. Normal distal pulses in tibial and radial bilaterally. Abdomen: Soft, nontender, normal active bowel sounds present Musculoskeletal: Normal, Strength/ROM Intact, Motor function in all 4 extremities is normal and symmetric. There is no rigidity or tremor noted. Neurological: A&Ox3, awake and alert, mentation is normal, speech is fluent and appropriate, Level of consciousness nml. The patient is alert and oriented. Cranial nerves are grossly intact. Gaze is conjugate and without nystagmus. Peripheral vision is intact to confrontation. There are no gross sensory abnormalities to light touch. There is no truncal or fine motor ataxia. Gait is normal. Psychiatric: affect is normal, does not appear anxious or depressed Triage Information Reviewed: Yes Vital Signs On Initial Exam: Initial Vitals Temp Pulse Resp BP Pulse Ox 98.7 F 103 18 169/103 98 03/14/19 19:18 03/14/19 19:18 03/14/19 19:18 03/14/19 19:18 03/14/19 19:18 Vital Signs Reviewed: Yes - [place] Coma Scale Best Eye Response: 4 - Spontaneous Best Motor Response: 6 - Obeys Commands Best Verbal Response: 5 - Oriented Coma Scale Total: 15 Procedures - Sedation Patient Received Moderate/Deep Sedation with Procedure: No Diagnostics - Vital Signs Vital Signs Temp Pulse Resp BP Pulse Ox 03/14/19 19:18 98.7 F 103 18 169/103 98 - Laboratory Result Diagrams: 03/14/19 19:24 03/14/19 19:24 Lab Statement: Any lab studies that have been ordered have been reviewed, and results considered in the medical decision making process. - CT Brain CT CT Interpretation Completed By: Radiologist Summary of CT Findings: Interval resolution of right thalamic hemorrhage with mild underlying hypodense region seen. No new hemorrhage. ED physician has reviewed this report. - EKG 1955 Cardiac Rate: NL - 71bpm EKG Rhythm: Sinus Rhythm ST Segment: Normal Ectopy: None Summary of EKG Findings: EKG at 1955 shows NSR at 71 BPM, P waves, QRS complex, and T waves are within normal limits, T waves and intervals are normal, no ischemic changes. This is a normal EKG. ED physician has reviewed and interpreted this EKG. NIH Scale - NIH Scale Level of Consciousness: Alert/Keenly Responsive Ask Patient the Month and His/Her Age: Both Correct Ask Pt to Open/Close Eyes and Pipe Turner/Release Non-Paretic Hand: Both Correctly Best Gaze (Only Horizontal Eye Movement): Normal Visual Field Testing: No Visual Loss Facial Paresis-Pt to Smile & Close Eyes or Grimace Symmetry: Normal/Symmetrical Motor Function - Right Arm: No Drift-Holds 10 Seconds Motor Function - Left Arm: No Drift-Holds 10 Seconds Motor Function - Right Leg: No Drift-Holds 10 Seconds Motor Function - Left Leg: No Drift-Holds 10 Seconds Limb Ataxia-Must be out of Proportion to Weakness Present: Absent Sensory (Use Pinprick to Test Arms/Legs/Trunk/Face): Normal Best Language (Describe Picture, Name Items): No Aphasia Dysarthria (Read Several Words): Normal Extinction and Inattention: No Abnormality Total Score: 0 Course/Dx - Course Course Of Treatment: Pt is an 78 y/o F presenting to the ED with a chief complaint of neurological deficit. HAMMAD CANAS CALLED at 1920. She reports L- sided paresthesia, and states that her blood pressure was high this afternoon in comparison with a normal reading this morning. Pt to CT at 1926. Pt in room at 193. Pt states she was on a short course of Keppra that has been discontinued d/t some paresthesia that occurred when she was taking the medication. She has had some medication changes since then, and today, she took her BP med around 1300. She states her BP was high, she had increased anxiety, and then noted some numbness on the L side of her body. She denies any specific muscular weakness. Pt's physical exam is normal, including an extended neurological exam. Brain CT shows: Interval resolution of right thalamic hemorrhage with mild underlying hypodense region seen. No new hemorrhage. EKG at 1955 shows NSR at 71 BPM, P waves, QRS complex, and T waves are within normal limits, T waves and intervals are normal, no ischemic changes. This is a normal EKG. ED physician has reviewed and interpreted this EKG. I spoke with Yordan Schmid at 2013 about the pt's condition who agreed with not giving tPA and admitting to the hospital for further hypertension management. As of 2017, Dr. Mariano will admit the pt to [facility] with dx of paresthesias. - Diagnoses Provider Diagnoses: Paresthesias Discharge ED - Sign-Out/Discharge Documenting (check all that apply): Patient Departure - Discharge Plan Condition: Stable Disposition: ADMITTED TO [facility] - Billing Disposition and Condition Condition: STABLE Disposition: Admitted to [facility] - Attestation Statements Document Initiated by Scribe: Yes Documenting Scribe: Hattie Forbes Provider For Whom Dwain is Documenting (Include Credential): Phillip Randall MD. Scribe Attestation: Hattie Pfeiffer scribed for Phillip Randall MD. on 03/15/19 at 0524. Scribe Documentation Reviewed: Yes Provider Attestation: The documentation as recorded by the sandeepibHattie howell accurately reflects the service I personally performed and the decisions made by me, Phillip Randall MD. Status of Scribe Document: Viewed Consult Consult: I spoke with Yordan Schmid at 2013 about the pt's condition who agreed with not giving tPA and admitting to the hospital for further hypertension management. 2017 - Dr. Mariano accepts pt for admission.
[2019-03-14 19:52] LABS: Activated Partial Thrombo Time 34.3 seconds (26.0-38.0); INR 1.14 (0.82-1.09); Troponin I 0.01 ng/mL (<0.03)
[2019-03-14 19:58] LABS: Albumin 4.2 g/dL (3.2-5.2); Albumin/Globulin Ratio 1.4 (1-3); BUN/Creatinine Ratio 16.1 (8-20); Calcium 9.2 mg/dL (8.6-10.3); EGFR Non-African American 104.2 (>60); Globulin 3.1 g/dL (2-4); HDL Cholesterol 61.2 mg/dL; Potassium 3.4 mmol/L (3.5-5.0); Total Bilirubin 0.3 mg/dL (0.2-1.0); Total Protein 7.3 g/dL (6.4-8.9)
[2019-03-14] MEDS ORDERED: LORazepam TAB(*) 1 MG PO ONE (20:14)
[2019-03-14] MEDS ORDERED: Metoprolol Tartrate TAB* 25 MG PO ONE (20:14)
[2019-03-14 21:23] LABS: Urine Appearance Clear; Urine Bilirubin Negative (Negative); Urine Blood Negative (Negative); Urine Color Straw; Urine Glucose Negative (Negative); Urine Ketones Negative (Negative); Urine Nitrite Negative (Negative); Urine Protein Negative (Negative); Urine Specific Gravity 1.004 (1.010-1.030); Urine Urobilinogen Negative (Negative)
[2019-03-14] MEDS ORDERED: Labetalol IV* 5 MG/ML 20 ML VIAL IV PUSH PRN (21:33)
[2019-03-14] MEDS ORDERED: Potassium Chlor TAB* 20 MEQ TAB.ER PO ONE (21:35)
[2019-03-14] MEDS ORDERED: amLODIPine TAB* 5 MG PO SCH (22:00)
[2019-03-14] MEDS ORDERED: Atorvastatin* 10 MG TAB PO SCH (23:05)
--- NOTE | 2019-03-14 23:21 | HP ---
CC: Dr. Phillips * HISTORY AND PHYSICAL: DATE OF ADMISSION: 03/14/19 PRIMARY CARE PROVIDER: Dr. Phillips. CHIEF COMPLAINT: Left lower extremity paresthesia. HISTORY OF PRESENT ILLNESS: Ms. Beaver is an 78-year-old female who was admitted to [facility] from 02/23/19 through 02/27/19 where she was treated for a right basal ganglia intracranial hemorrhage with hypertensive urgency. She at that time had left-sided weakness and paresthesias. She also had markedly elevated blood pressure that was treated in the ICU with a drip, and by the time of being ready for discharge, she was off her antihypertensives. She was on Keppra prophylactically due to the hemorrhage. The patient saw Dr. Phillips in followup 2 to 3 days after her discharge and states that she was taken off the Keppra and was restarted on her hydrochlorothiazide. She states that she was doing very well up until the morning of admission. She states that she had 2 loose bowel movements this morning, followed by her stomach feeling off. She states that she did not eat much throughout the day. Her blood pressure in the morning was under good control at 134/70. By the afternoon around 2 p.m., her blood pressure was up to 174 systolic. She has begun to get anxious. At approximately 5 p.m., she starts to feel as if her left foot felt numb and possibly tingly. This moved up to the knee. She waited for approximately 30 minutes and then called her son. About an hour later, she presented to the emergency room. The patient states generally the symptoms in her left leg are improved though she does complain of a numbness sensation in the left foot. Generally, the patient is a very poor historian and difficult to pull the history from. PAST MEDICAL HISTORY: 1. Hypertension. 2. Dyslipidemia. 3. Right thalamic hemorrhage. 4. Macular degeneration. 5. Chronic back pain. PAST SURGICAL HISTORY: 1. Bilateral cataract extraction. 2. SARAH-BSO. 3. Appendectomy. MEDICATIONS: 1. PreserVision AREDS 2 one cap p.o. b.i.d. 2. Melatonin 3 mg p.o. q.h.s. p.r.n. insomnia. 3. Hydrochlorothiazide 12.5 mg p.o. daily. 4. Lipitor 10 mg p.o. daily. ALLERGIES: No known drug allergies. FAMILY HISTORY: Her mom in her 70s of colon cancer. Dad was in a hunting accident. SOCIAL HISTORY: The patient is a lifelong nonsmoker. She drinks alcohol rarely. 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 She is . She has 3 children. She lives in a senior apartment in [place]. REVIEW OF SYSTEMS: A complete 11-system review of systems was obtained. Pertinent positives and negative are as per HPI and in addition to the above, the patient states that she generally has poor appetite that is slightly worse today. She also states that she has had left ear discomfort and sinus pressure which was treated with amoxicillin by Dr. Phillips. She states she was on a 10-day course which is now completed. She also admits to significant anxiety. PHYSICAL EXAMINATION GENERAL: The patient is a well-developed elderly female, who appears younger than her stated age, sitting up in the stretcher, in no acute distress. VITAL SIGNS: Blood pressure 194/91, pulse 85, respirations 14, temp 98.7, O2 sat 97% on room air. HEENT: Pupils are equal. Extraocular muscles are intact. Oropharynx is clear and moist. There is no submandibular, cervical, or supraclavicular adenopathy. CARDIAC: Normal S1, S2. Regular rate and rhythm. I do not appreciate any murmurs. There is no lower extremity edema. PULMONARY: Lungs are clear to auscultation bilaterally. ABDOMEN: Bowel sounds are present. Abdomen is soft, nontender, nondistended. MUSCULOSKELETAL: The patient moves all 4 extremities symmetrically. SKIN: Warm and dry. There are no rashes. NEURO: Cranial nerves II through XII are grossly intact. Sensation is intact to light touch throughout. Strength is 5/5 and symmetric in both upper and lower extremities bilaterally. PSYCH: The patient is alert, she is oriented x3. She is somewhat anxious. She is a poor historian. DIAGNOSTIC AND LABORATORY DATA: WBC 5.5, hemoglobin 12.1, hematocrit 36, platelets 336. INR 1.14. Sodium 136, potassium 3.4, chloride 99, CO2 of 29. BUN 9, creatinine 0.56. Glucose 133. Lactic acid 1.5. Calcium 9.2. Bilirubin 0.3. AST 24, ALT 15, alk phos 66. Troponin 0.01. Albumin 4.2. Total cholesterol 168, triglyceride 129, LDL 81, HDL 61.2. EKG reveals normal sinus rhythm without any acute ST-T wave abnormalities. CT brain interval resolution of right thalamic hemorrhage with mild underlying hypodense lesion seen. No new hemorrhage. ASSESSMENT AND PLAN: Ms. Beaver is an 78-year-old female who approximately 3 weeks ago presented to [facility] with left-sided weakness and paresthesias, was identified to have a right thalamic hemorrhage, who had been doing well up until the evening of admission when she again developed left lower extremity paresthesias. 1. Left lower extremity paresthesias. There is no new bleed seen on CT scan. Question possible TIA though her symptoms have been ongoing for quite some time. At this point, I do not feel that she needs any further imaging with CTA or echocardiogram. Neuro consult will be obtained tomorrow morning. Neuro checks will be obtained overnight. At this point, I am going to hold off on starting an aspirin given the recent intracranial hemorrhage. 2. Hypertensive urgency. The patient again has markedly elevated blood pressures ranging from the 160s to 200s systolically. The patient is only on hydrochlorothiazide 12.5 mg daily. I am going to add p.r.n. labetalol for now for systolics greater than 180. I think she needs improved blood pressure control. I am also going to add amlodipine 5 mg at bedtime. With this, we will monitor her blood pressure. 3. Hyperlipidemia. Continue Lipitor 10 mg at bedtime. 4. DVT prophylaxis. According to the Adult Thrombosis Prophylaxis Risk Factor Assessment Guide, the patient has a total risk factor score of 8 making her the highest risk. She will be placed on SCDs alone for DVT prophylaxis given her recent thalamic hemorrhage. 5. Code status is full. TIME SPENT: Sixty-five minutes was spent admitting this patient. [id number]/CPS #: [id number] ANTON
[2019-03-15 07:56] VITALS: BP 123/64
[2019-03-15] MEDS ORDERED: Multivitamins/Minerals TAB PO SCH (09:00)
[2019-03-15] MEDS ORDERED: Hydrochlorothiazide TAB* 25 MG PO SCH (09:00)
--- NOTE | 2019-03-15 11:22 | CONS ---
NEUROLOGY CONSULTATION NOTE: DATE OF SERVICE: 03/15/19 CONSULTING PROVIDER: Emi. REASON FOR CONSULT: Fatigue of the left leg. CHIEF COMPLAINT: Left leg weakness. HISTORY OF PRESENT ILLNESS: Mrs. Beaver is an 78-year-old female who was recently hospitalized at [facility] on 02/23/19 to 02/27/19 with symptoms of left-sided weakness due to right basal ganglia intracranial hemorrhage secondary to hypertensive urgency. She was in the ICU for a few days to treat her elevated blood pressure. Eventually, she was discharged home with significant improvement in her weakness. The patient was placed on Keppra prophylactically. She did not have any seizures. She was taken off Keppra last week. The patient stated that she was in normal state of health yesterday. She woke up in the morning and checked her blood pressure. She noticed that her systolic blood pressure was between 120-130. She was asymptomatic. She felt that this blood pressure was slightly low for her. She decided not to take her blood pressure medications in the morning. At approximately 1-2 o'clock, the patient's blood pressure began increasing. She took her blood pressure medications at that time. At 5 p.m., the patient started feeling numbness and heavy sensation on the left leg. She stated that she was not weak and she could still walk around. It was not the same weakness that she had 2 weeks ago. The symptoms seemed to have resolved this morning after aggressive management of her blood pressure. She came in the ED yesterday and was found to have systolic blood pressure in the 190s. Currently, the patient denied any weakness or paresthesias. She denied any headaches. She denied any chest pain or shortness of breath. She denied any double vision, blurry vision, retroorbital pain, swallowing difficulty, dysphagia, dysarthria. Her blood pressure this morning is systolics in the 120s. She was able to walk around with no assistance. She wants to go home. NIH stroke scale was 0. The patient reported that she feels extremely anxious. She also talked to her primary care doctor to start her on some medications for anxiety. The patient also stated that she feels stuffy around her sinuses. She was started on antibiotics a few weeks ago that she completed. She denied any hearing loss or tinnitus. PAST MEDICAL HISTORY: Hypertension, dyslipidemia, recent right thalamic hemorrhage, macular degeneration, chronic low back pain. PAST SURGICAL HISTORY: Total abdominal hysterectomy, appendectomy, bilateral cataract extraction. HOME MEDICATIONS: 1. Hydrochlorothiazide 12.5 mg p.o. daily. 2. Atorvastatin 10 mg p.o. daily. 3. Melatonin 3 mg at bedtime. ALLERGIES: No known drug allergies. FAMILY HISTORY: There is no family history of stroke or seizures. SOCIAL HISTORY: The patient is a nonsmoker. She rarely drinks alcohol. She is . She has 3 children and lives in a senior apartment in [place]. REVIEW OF SYSTEMS: A complete 12-point review of systems was obtained, reviewed , and otherwise negative, except for what was mentioned in the HPI. PHYSICAL EXAM: Vitals: Temperature of 98.1, pulse of 71, respiratory rate of 16, oxygen saturation of 98%, blood pressure of 122/64. General: A well- nourished, well-developed, elderly female, who appears younger than stated age. Head: Atraumatic, normocephalic without any obvious abnormality. Neck is supple and symmetrical with no carotid bruit. No lymphadenopathy. Eyes: Conjunctivae/corneas are clear. Cardiac: Regular rate and rhythm with normal S1, S2. Chest: Clear to auscultation bilaterally with no wheezing or rhonchi. Extremities: Normal range of motion with no cyanosis. Skin: No skin laceration or rash. Psych: Affect is broad, normal mood, easy to establish rapport. Neurological Examination: Mental status: Awake, alert, and oriented to person , place, time, and general circumstance. Speech and language including expression, repetition, and comprehension were assessed and found to be normal. Cranial Nerves: Pupils are equal, round, and reactive to light. Extraocular muscles are intact. There is normal sensation in the face bilaterally. No facial asymmetry. Tongue is symmetric and midline with no atrophy or fasciculation. Motor Examination: 5/5 strength in the upper and lower extremities with normal tone throughout. Sensation is intact to light touch and temperature sensation throughout. Reflexes are 1+ throughout except trace at the ankles bilaterally. Coordination: Normal biytpw-gf-anke and heel-to- burroughs testing bilaterally. Gait: Normal stance, slightly unsteady, but no significant swing or falls. LABS/IMAGING/OTHER DIAGNOSTIC TESTING: WBC of 5.5, hemoglobin of 12, hematocrit 36, platelet count of 336. INR is 1.14. APTT is 34.3. Sodium of 136, potassium of 3.4, chloride of 99, BUN of 9, glucose of 133, AST is 24, ALT is 15, LDL is 81. Urinalysis negative for pyuria. CT head without contrast was completed yesterday and showed no evidence of acute intracranial abnormality. The recent right thalamic hemorrhage has resolved. There is mild hypodensity seen around that region. There is no new hemorrhage. 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 ASSESSMENT AND RECOMMENDATION: Mrs. Jahaira Beaver is an 78-year-old who was recently diagnosed with right thalamic hemorrhage in early February of 2019 , who was discharged home without any significant deficits, who developed sudden onset left leg mild weakness and paresthesias. Her symptoms have resolved. The symptoms were associated with significant elevated blood pressure. I suspect the patient's symptoms were related to symptomatic hypertensive urgency. Clearly, we ruled out any recurrent hemorrhage. I do not suspect she had an ischemic event since the symptoms accompany the same distribution to her recent intracranial hemorrhage. The patient also was anxious and stated that she is concerned and getting panicky about trying to follow up with a neurosurgeon in [place]. She prefers to keep the services near her home or if she really needs to go see a specialist, she would prefer to go to [place] since it is closer to her. I have reassured the patient that we can set her up with Dr. Taylor's clinic here in [place] to be seen within the next month. She was extremely happy to hear that she does not have to go the distance to seek medical help. I do not see any further intervention from the neurosurgical standpoint since the patient's bleed was most likely related to uncontrolled hypertension. I will defer further management to the patient's neurologist. She should follow up with Dr. Mims within 4 to 6 weeks. In terms of the aneurysm that is seen in the right ICA supraclinoid portion, I do recommend that she should at least get a one-time consultation with Dr. Taylor and then possible repeat imaging in the near future to see if there is any change in the aneurysm size. However, no acute intervention is required at this time. RECOMMENDATIONS: I recommend aggressive management of the patient's blood pressure. Make sure she maintains a systolic blood pressure between 120 to less than 140 mmHg. I educated and advised the patient to take her blood pressure medication regularly in spite of her blood pressure measurement. She should discuss this further with her primary care doctor. Certainly, she should not take her blood pressure medication if her systolic is below 100. I also encouraged her to come back to the ER immediately if she has any recurrence of symptoms or if she has any other symptoms such as headaches, visual disturbance, swallowing difficulty, speech problem, or weakness. The patient verbalized understanding. She is happy to be told that she can go home today. No need for PT/OT/OFFAL BALER as the patient has no fine motor movement abnormalities, is ambulatory, and denied any swallowing difficulty. [id number]/CPS #: [id number] ANTON
--- NOTE | 2019-03-15 21:58 | DS ---
CC: Dr. Alex Phillips; Dr. Karl May * DISCHARGE SUMMARY: DATE OF ADMISSION: 03/14/19 DATE OF DISCHARGE: 03/15/19 PRIMARY CARE PROVIDER: Dr. Alex Phillips. ATTENDING PHYSICIAN: Dr. Marcos Mahan.* (DICTATED BY ALEXANDRA ALEJANDRE NP) PRIMARY DIAGNOSES: 1. Left lower extremity paresthesias. 2. Hypertensive urgency. SECONDARY DIAGNOSES: 1. Hyperlipidemia. 2. Intracranial hemorrhage. 3. Macular degeneration. 4. Chronic back pain. STUDIES WHILE IN THE HOSPITAL: 1. Brain CT on 03/14/19 reads as interval resolution of right thalamic hemorrhage with mild underlying hypodense region seen. No new hemorrhage. 2. EKG on 03/14/19 shows normal sinus rhythm with a rate of 71, QTc 431, no ischemic changes. HISTORY OF PRESENT ILLNESS AND HOSPITAL COURSE: Ms. Beaver is an 78-year- old female with past medical history of hypertension, hyperlipidemia, macular degeneration, chronic back pain and recent intracranial hemorrhage, who presented to the emergency room on 03/14/19 with complaints of left lower extremity paresthesias. Please see the history and physical by Dr. Mariano for a complete summary of the events leading up to this hospitalization. In short, the patient was admitted to [facility] from 02/23/19 through 02/27/19 , at which point she was treated for a right basal ganglia intracranial hemorrhage with associated hypertensive urgency. Symptoms at that time were left-sided weakness and paresthesias. The patient was ultimately discharged on prophylactic Keppra. She saw her primary care provider shortly after discharge, at which point she was taken off the Keppra and hydrochlorothiazide was restarted. The patient's symptoms began yesterday morning. She noted her blood pressure in the morning was in the 130 systolic and later in the day, the systolic went up to the 170s. She did start to notice left foot numbness and tingling, and out of concern presented to the emergency room. In the emergency room, she had imaging as noted above, which was unremarkable for any new bleeds. She had lab work, which was unremarkable. She was noted to be hypertensive with blood pressure as high as 208/85. Because of concern for her symptoms, she was admitted by the hospitalist service. The patient was kept on her hydrochlorothiazide. Amlodipine was also added for blood pressure control. Her symptoms mostly resolved overnight, though this morning are still somewhat present. I did consult Neurology this morning and Dr. May saw the patient. At that point, he felt as though her symptoms were secondary to elevated blood pressure. He recommended aggressive blood pressure management with a goal of keeping the systolic blood pressure between 120 and 140. The patient did note that she did not take her blood pressure medications yesterday as when she saw the systolic in the 130s yesterday morning, she felt as though that was an acceptable reading and did not feel as though she needed to take her antihypertensives. The patient was noted to be ambulating well without difficulty. He did clear the patient for discharge with appropriate followup. On exam, the patient was alert and oriented x4. Left lower extremity sensation is slightly decreased when compared to the right lower extremity, though otherwise she has no neurological deficits. Heart has a regular rate and rhythm without murmurs, rubs, or gallops. Lungs are clear to auscultation without rhonchi, wheezes, or rubs. Ms. Beaver is stable for discharge today. Most recent vitals are as follows : Temp 98.1, heart rate 71, respiratory rate 16, oxygen saturation 98% on room air, blood pressure 123/64. DISCHARGE MEDICATIONS: New medications: 1. Amlodipine 5 mg p.o. at bedtime. Continued medications: 1. Atorvastatin 10 mg p.o. daily. 2. Hydrochlorothiazide 12.5 mg p.o. daily. 3. Melatonin 3 mg p.o. at bedtime p.r.n. insomnia. 4. PreserVision 1 cap p.o. b.i.d. DISCHARGE PLAN: Ms. Beaver will be discharged home. Activity will be as tolerated. She can resume her usual physical therapy. Diet will be heart healthy. Medications are as noted above. She can continue her usual medications and amlodipine has been added for blood pressure management. I did have a long talk with the patient about blood pressure control and advised her that even if she obtains a blood pressure reading in the 120s or 130s, she should still certainly take her blood pressure medications and this is not an indication for holding medications. I did advise her that if she noted her systolic blood pressure to be less than 110, she could hold blood pressure medications at that time, though should recheck her blood pressure later in the day and take medication at that time if appropriate. The hope is obviously to prevent any other episodes of hypertensive urgency. She will need to follow up with her primary care provider in the next 4 to 7 days. She should follow up with Neurology as previously instructed. She should return to the emergency room or nearest hospital for any worsening of symptoms, shortness of breath, lightheadedness, dizziness, chest discomfort, high fevers, chills, night sweats , loss of consciousness, or any other worrisome signs or symptoms. DISCHARGE CONDITION: Stable. DISCHARGE DISPOSITION: Home. This is a summarized report of a complex medical history and hospital stay. For further details, please see the entire medical record. TIME SPENT: Approximately 50 minutes were spent on this discharge. ALEXANDRA ALEJANDRE, ISATU [id number]/[facility] #: [id number] [place]
== END 2019-03-15 12:57 | disposition home or self-care (01) ==
LOC: ED 19:16 → MEDTELE 21:31
PROVIDERS: ADMIT Hospitalist; ATTEND Internal Medicine
DX: R20.2 Paresthesia of skin (principal); I16.0 Hypertensive urgency; E78.5 Hyperlipidemia, unspecified; Z86.73 Personal history of transient ischemic attack (TIA), and cerebral infarction without residual deficits; H35.30 Unspecified macular degeneration; M54.9 Dorsalgia, unspecified; G89.29 Other chronic pain; Z79.899 Other long term (current) drug therapy
CPT/HCPCS: 36415; 70450; 80053; 80061; 81003; 83605; 84484; 85025; 85610; 85730; 93005; 96360; 99284; A9270-GY; G0378